=== PATIENT | female | born 1980 | race Caucasian/White ===

== ENCOUNTER 2025-01-19 18:38 | Emergency (ER) | payer OTHER, SELFPAY ==
[2025-01-19 18:40] VITALS: BMI 19.1
[2025-01-19 18:43] VITALS: BP 129/94
[2025-01-19 19:02] VITALS: BP 101/83
[2025-01-19 20:00] VITALS: BP 106/79
[2025-01-19 20:12] LABS: Amphetamines Negative (Negative); Barbiturates Negative (Negative); Benzodiazepines Negative (Negative); Buprenorphine Negative (Negative); Cocaine Negative (Negative); Marijuana Negative (Negative); Methadone Negative (Negative); Methamphetamines Negative (Negative); Opiates Positive (Negative); Phencyclidine Negative (Negative); Tricyclic Antidepressants Negative (Negative)
[2025-01-19 20:27] LABS: Fentanyl, Urine Positive (Negative)
--- NOTE | 2025-01-19 22:02 | ED.GENMED ---
History of Present Illness
General
Chief Complaint: Overdose Intentional
Source: patient
Exam Limitations: none
Time Seen by Provider: 01/19/25 19:05
History of Present Illness
History of Present Illness:
44-year-old female presents from [facility] for evaluation of potential overdose. She came into custody yesterday. She was alert earlier today went to the [facility] got her medicine shortly after that she was found in her
cell and responsive. They were concerned about potential retained substances. She admits to using heroin. She was given Narcan prehospital and now is alert. She denies any complaints at this time.
Past History
Past History
ED Past Medical History: Asthma
ED Past Surgical History:
Social History
Tobacco: Smoker
Personal:
Living: with family
Family History
Family History: Other (Noncontributory)
Phy Exam
Physical Exam
Physical Exam:
General: Cachectic female no acute respiratory distress
Neurologic exam alert responsive verbal stimuli follows commands answers questions
HEENT normocephalic pupils equal round reactive to light
Heart: Regular rate and rhythm
Lungs: Clear no wheeze
Extremities: No cyanosis
Course
Orders/Labs/Results
Orders:
Orders
01/19/25 19:32
CR Obstruct Series W/pa Chest Urgent
Comment:
Reason For Exam: possible foreign body
01/19/25 19:55
Drug Screen, Urine [Urine Drug Abuse Screen] Urgent
Date Specimen was Collected: 01/19/25
Time Specimen was Collected: 19:53
Fentanyl, Urine Urgent
Abnormal Lab Results
01/19/25
19:55
Urine Opiates Screen Positive H
(Negative)
Urine Fentanyl Screen Positive H
(Negative)
Vital Signs
Initial and Last Documented VS:
Initial Vital Signs
Temp Pulse Resp BP Pulse Ox
98.3 F 88 18 129/94 97
01/19/25 18:43 01/19/25 18:43 01/19/25 18:43 01/19/25 18:43 01/19/25 18:43
Last Documented Vital Signs
Temp Pulse Resp BP Pulse Ox
98.3 F 71 30 106/79 95
01/19/25 18:43 01/19/25 20:00 01/19/25 20:00 01/19/25 20:00 01/19/25 21:30
MDM/Problems Addressed
Differential Diagnosis Includes:
Potential overdose. Admits to using heroin. This patient is now here after receiving Narcan by first responders and is alert and responsive. Obstruction series is ordered as a correctional facility was concerned about potential retained foreign
bodies. Obstruction series is negative. She was observed for over 2 hours here and has been ambulatory to the bathroom and is in no respiratory distress. At this point no indication for admission or further treatment stable for discharge back to
correction
*Critical Care Note
Total Time (30-74mins, 75-104mins- exclusive of procedures): Not Applicable
ED Attending Note
-
Portions of this chart may have been created with voice recognition software.� Occasional wrong word or��sound alike� substitutions may have occurred due to the inherent limitations of voice recognition software.
Discharge Plan
Departure
Patient Disposition: Home (Routine Discharge)
Date of Disposition: 01/19/25
Time of Disposition: 22:05
Patient with high blood pressure during this ER visit?: No
Discharge Problem:
Overdose
Instructions: Accidental Overdose
Prescriptions:
No Action
alprazolam 1 MG tablet
2 mg PO TID
albuterol sulfate [Ventolin HFA] 90 MCG/PUFF HFA aerosol inhaler
1 puff inhalation PRN PRN (Reason: rescue )
budesonide-formoterol [Symbicort] 1 PUFF HFA aerosol inhaler
2 puff inhalation R BID
Methadone HCl
150 mg PO DAILY
amitriptyline 10 MG tablet
10 mg PO HS
Patient Comments:
patient has medication from PCP but has never taken
escitalopram oxalate 10 MG tablet
10 mg PO DAILY
Patient Comments:
New medication ordered by PCP, hasn't started yet. Was to increase to 10 mg after 14 days
escitalopram oxalate 10 MG tablet
5 mg PO DAILY
Patient Comments:
New medication ordered for patient, has not taken yet. Was to take for 14 days than increase to 10mg daily.
acetaminophen 325 MG tablet
650 mg PO Q4HPRN PRN (Reason: mild pain) Qty: 0 0RF
ibuprofen 400 MG tablet
400 mg PO Q6HPRN PRN (Reason: moderate pain) Qty: 0 0RF
Saccharomyces boulardii 250 MG capsule
250 mg PO BID Qty: 30 0RF
guaifenesin [Mucus Relief ER] 600 MG tablet extended release 12hr
600 mg PO Q12 0RF
cephalexin 500 MG capsule
750 mg PO QID Qty: 26 0RF
Rx Instructions:
Please continue keflex 4 times a day for 6 further days to complete course - you should take 2 more doses today, 03/13.
tramadol 50 MG tablet
50 mg PO Q6HPRN PRN (Reason: pain) Qty: 1 0RF
Referrals:
UNKNOWN - PT DOES,NOT KNOW [Family Provider] -
Activity Restrictions/Additional Instructions:
Return here if needed.
Interventions
Interventions:
*Risk Screen - Suicide Last Done: 01/19/25 20:15
*General Assessment Last Done: 01/19/25 18:43
*Neglect/Abuse Screening Last Done: 01/19/25 20:15
*ED- Fall Risk Assessment Last Done: 01/19/25 20:15
*ED COVID-19 Vaccine History Last Done: 01/19/25 20:15
ED- Cardiac Assessment Last Done: 01/19/25 19:13
ED- Neurological Assessment Last Done: 01/19/25 19:13
ED-Psychological Assessment Last Done: 01/19/25 19:13
ED- Pulmonary Assessment Last Done: 01/19/25 19:13
Discharge Date and Time
Print Language: BENGALI
[2025-01-19 22:12] VITALS: BP 122/96
== END 2025-01-19 22:44 | disposition home or self-care (01) ==
LOC: EMR 18:38
PROVIDERS: Physician Assistant; EMERGENCY PHYSICIAN Emergency Medicine
DX: T40.1X2A Poisoning by heroin, intentional self-harm, initial encounter (principal); R40.4 Transient alteration of awareness; Y92.143 Cell of prison as the place of occurrence of the external cause; J45.909 Unspecified asthma, uncomplicated; F17.200 Nicotine dependence, unspecified, uncomplicated
CPT/HCPCS: 99283; 74022; 80306; 80307

== ENCOUNTER 2025-07-28 16:46 | Inpatient (IN) | payer OTHER, SELFPAY ==
[2025-07-28] VITALS (16 sets, daily range): BP systolic 146–239; BP diastolic 77–132; BMI 20.1; BMI 20.9
--- NOTE | 2025-07-28 14:03 | ED.GENMED ---
History of Present Illness
General
Chief Complaint: Blood Pressure Problem
Source: patient
Time Seen by Provider: 07/28/25 13:53
History of Present Illness
History of Present Illness:
45-year-old female brought to the emergency room by [facility] deputies for evaluation of abnormal vital signs. Patient was arrested and taken to the [facility] long-term where she was found to have abnormal vital signs on intake. Specifically she
was noted to have a rapid heart rate and a very high blood pressure. Patient admits to opiate abuse. She uses about 10-12 bags of 'fentanyl' a day by inhalation. Patient last use was about 12 hours ago. She was hospitalized about a month ago for
withdrawal with similar symptoms. Unfortunately after discharge she began using again. She denies taking prescription medications other than albuterol. She denies any current IV drug use. Patient had been to a methadone clinic where she took 100
mg of methadone a day. However she has not been dosed in the past 3 days.
Past History
Past History
ED Past Medical History: Asthma
ED Past Surgical History:
Social History
Tobacco: Smoker
Personal:
Living: with family
Family History
Family History: Other (Noncontributory)
Phy Exam
Physical Exam
Physical Exam:
General: Awake, Alert, Oriented X3. Appears mildly uncomfortable
Vitals: Hypertensive, tachycardic
Head: Atraumatic
Eyes: Pupils equal, EOMI
Throat: Airway intact, no exudates
Neck: Trachea midline
Lungs: Clear and equal b/l
Heart: Tachycardic, regular rate, no murmurs
Abd: Soft, Nontender, No pulsatile mass
Neuro: Nonfocal
Skin: Warm, dry, no rash
Extremities: pulses equal b/l, no edema
Course
Orders/Labs/Results
Orders:
Orders
07/28/25 13:58
0.9% Sodium Chloride 500 ml [Nss] 500 ml IV BOLUS
Acetaminophen [Tylenol] 1,000 mg PO NOW STA
Clonidine [Catapres] 0.1 mg PO NOW STA
HYDROmorphone [Dilaudid] 1 mg IV NOW STA
Ondansetron Injectable [Zofran] 4 mg IV NOW STA
Tizanidine [Zanaflex] 2 mg PO NOW STA
07/28/25 14:02
Electrocardiogram (*1) Urgent
Reason for Study: Tachycardia
Cardiac Monitoring- Treatment ONCE
EKG- Treatment ONCE
Test Result ONCE
07/28/25 14:37
Complete Blood Count/With Diff Urgent
Comprehensive Metabolic Panel Urgent
HCG, Serum Qualitative Screen Urgent
Magnesium Urgent
Comment: ADD ON
07/28/25 Dinner
NPO
Allow oral meds: Yes
Allow clear liquids: No
07/28/25 15:03
Ondansetron Injectable [Zofran] 4 mg IV NOW STA
07/28/25 15:06
Clonidine [Catapres] 0.1 mg PO NOW STA
07/28/25 15:13
Midazolam HCl [Versed] 2 mg IV NOW STA
07/28/25 15:22
Urinalysis Reflex To Culture Urgent
Date Specimen was Collected: 07/28/25
Time Specimen was Collected: 16:30
Urine Drug Abuse Screen Urgent
Date Specimen was Collected: 07/28/25
Time Specimen was Collected: 16:30
Urine Fentanyl [Fentanyl, Urine] Urgent
07/28/25 16:17
Dexmedetomidine 400 Mcg/100 ml [Precedex] 400 mcg in 100 ml IV NOW
07/28/25 16:30
Admit/Transfer Patient As Directed
Co-Sign Provider:
Level of Care: Inpatient admission
Assign to:: ICU
Physician / Group: renata
Diagnosis: opiate/xylazine/benzo overdose
Reason for Hospitalization: opiate/xylazine/benzo overdose
Expected length of stay greater than two midnights?: Yes
ELOS- Estimated Length of Stay in days: 2
I certify the patient meets the requirements for IP care: Yes
PRN Pain Medication Management As Directed
May give lesser potent ordered pain med per pt: Yes
preference::
Protocol:: Medication orders for pain may be administered in a
manner that supports deferring to patient preference
when the pt is:
- Requesting an ordered lesser potent pain medication.
Least to most potent pain medications are defined
as: acetaminophen < NSAID < tramadol < opioids
(morphine, oxycodone, hydromorphone).
- Requesting a lesser dose of the same medication IF
ORDERED.
- Requesting a less intrusive route of administration
if both routes are prescribed by the provider (PO <
IV).
07/28/25 16:31
Add On- LAB Urgent
Tests Added?: uds,ua
07/28/25 16:33
Code Status As Directed
Resuscitation Status: Full Code
07/28/25 16:37
Add On- LAB Routine
Tests Added?: mag
HYDROmorphone [Dilaudid] 0.5 mg IV NOW STA
07/28/25 17:09
0.9% Sodium Chloride 1000 ml [Nss] 1,000 ml IV 100 mls/hr
07/28/25 17:09
Activity As Directed
Activity Level: As Tolerated
Vital Signs As Directed
Frequency: Per unit guidelines
DX Deep Vein Thrombosis Video Routine
07/28/25 20:00
Heparin 5,000 units SC Q12
07/29/25 06:00
Complete Blood Count/With Diff IN AM
Comprehensive Metabolic Panel IN AM
Abnormal Lab Results
07/28/25 07/28/25
14:37 15:22
RBC 5.57 H 10^6/uL
(4.20-5.40)
MCV 77.9 L fL
(81.0-99.0)
Potassium 2.8 L mmol/L
(3.5-5.1)
BUN 6 L mg/dl
(7-17)
Creatinine 0.5 L mg/dL
(0.6-1.0)
Magnesium 1.3 L mg/dl
(1.6-2.3)
AST 38 H U/L
(14-36)
Urine Opiates Screen Positive H
(Negative)
Urine Methadone Screen Positive H
(Negative)
Urine Fentanyl Screen Positive H
(Negative)
U Benzodiazepines Scrn Positive H
(Negative)
07/28/25 14:37
07/28/25 14:37
Vital Signs
Initial and Last Documented VS:
Initial Vital Signs
Temp Pulse Resp BP Pulse Ox
98.4 F 121 18 219/124 95
07/28/25 13:20 07/28/25 13:20 07/28/25 13:20 07/28/25 13:20 07/28/25 13:20
Last Documented Vital Signs
Temp Pulse Resp BP Pulse Ox
98.0 F 144 21 189/114 98
07/28/25 19:54 07/28/25 21:45 07/28/25 21:45 07/28/25 21:39 07/28/25 21:49
MDM/Problems Addressed
Differential Diagnosis Includes:
Xylazine withdrawal, opiate withdrawal, electrolyte abnormality,
MDM/Problems Addressed:
Patient presents with symptoms of opiate and/or xylazine withdrawal. Patient initially treated with IV opiate in the form Dilaudid, p.o. clonidine, antiemetics, Zanaflex. IV fluid resuscitation initiated. Patient continued to have significant
symptoms. Clonidine redosed, Dilaudid redosed. Ultimately patient placed on a Precedex drip. She will be admitted to the intensive care unit. Zofran administered for nausea vomiting.
*Pulse Oximetry
SaO2: 95
Oxygen Mode of Delivery: Room air
Patient hypoxic: no
*Health Researcher Interpretation
Rate: tachycardiac
Interpretation: abnormal
Heart Rate: 143
Rhythm: sinus tachycardia
*Critical Care Note
Total Time (30-74mins, 75-104mins- exclusive of procedures): 44 min
comment:
Critical care statement: A total of 44 minutes of critical care time was provided for this patient. This includes management of unstable vital signs, evaluation of the patient at bedside, reviewing the patient's pertinent medical records, discussion
with consultants, review of old EKGs and review of pertinent medical records. This time with separate from time utilized to perform the aforementioned documented procedures
ED Attending Note
-
Portions of this chart may have been created with voice recognition software.� Occasional wrong word or��sound alike� substitutions may have occurred due to the inherent limitations of voice recognition software.
Discharge Plan
Departure
Patient Disposition: Admit
Date of Disposition: 07/28/25
Time of Disposition: 16:17
Presentation/result/management discussed w/ accepting MD/DO: Hospitalist
Condition: Critical
Discharge Problem:
xylazine withdrawl, Opiate withdrawal
Interventions
Interventions:
*Risk Screen - Suicide Last Done: 07/28/25 13:20
*General Assessment Last Done: 07/28/25 17:23
*Neglect/Abuse Screening Last Done: 07/28/25 13:20
*ED COVID-19 Vaccine History Last Done: 07/28/25 13:20
*Nursing Disposition Last Done: 07/28/25 17:23
ED- Cardiac Assessment Last Done: 07/28/25 15:03
ED- Neurological Assessment Last Done: 07/28/25 15:03
ED- Pulmonary Assessment Last Done: 07/28/25 15:03
Discharge Date and Time
Discharge Date/Time: 07/28/25 17:23
[2025-07-28] MEDS: CATAPRES 0.1 MG PO ×2 (14:15→15:19)
[2025-07-28] MEDS: ZANAFLEX 2 MG PO ×2 (14:15→20:18)
[2025-07-28] MEDS: TYLENOL 1000 MG PO (14:15)
[2025-07-28] MEDS: DILAUDID 1 MG IV (14:34)
[2025-07-28] MEDS: ZOFRAN 4 MG IV ×2 (14:35→15:19)
[2025-07-28] MEDS: NSS 500 IV (14:35)
[2025-07-28 15:10] LABS: Hematocrit 43.4 % (37.0-47.0); Hemoglobin 15.1 g/dL (12.0-16.0); Mean Corp Hgb Conc. 34.8 g/dL (33.0-37.0); Mean Corpuscular Volume 77.9 fL (81.0-99.0); Nucleated Red Blood Cells % 0 %; Platelet Count 200 10^3/uL (130-400); Red Cell Dist. Width 13.6 % (11.5-14.5)
[2025-07-28] MEDS: VERSED 2 MG IV (15:19)
[2025-07-28 15:30] LABS: HCG, Serum Qualitative Screen Negative
[2025-07-28 15:44] LABS: ALT (SGPT) 28 U/L (0-35); AST (SGOT) 38 U/L (14-36); Albumin 4.8 g/dl (3.5-5.0); Alkaline Phosphatase 98 U/L (38-126); Blood Urea Nitrogen 6 mg/dl (7-17); Calcium 9.8 mg/dl (8.4-10.2); Carbon Dioxide 30 mmol/L (22-30); Chloride 99 mmol/L (98-107); Glucose 83 mg/dl (70-99); Potassium 2.8 mmol/L (3.5-5.1); Sodium 139 mmol/L (135-145); Total Protein 8.2 g/dl (6.3-8.2); eGFR > 60.00
[2025-07-28] MEDS: PRECEDEX 100 IV ×2 (16:20→21:42)
[2025-07-28] MEDS: DILAUDID 0.5 MG IV (16:40)
--- NOTE | 2025-07-28 16:44 | HPS.HSE ---
Family Physician
-
Family Physician: * NONE
Chief Complaint
-
withdrawal
History of Present Illness
45-year-old female past medical history of alcohol use disorder, remote history of drug use, asthma, tobacco use, cholelithiasis, presenting to the emergency room by [facility] deputies for abnormal vital signs. Patient was arrested and taken to
[facility] where she was found to have abnormal vital signs on intake. She was noted to have rapid heart rate and very high blood pressure. She admits to opiate abuse with tranquilizer. She uses 10-12 bags of fentanyl a day by
inhalation. Last use was 12 hours ago. She is taking 8 mg of Xanax per day. She denies alcohol use. Denies marijuana or cocaine use. She has vomiting. Denies any chest pain or shortness of breath. She has abdominal pain.
She smokes nicotine as well.
He was hospitalized a month ago for withdrawal with similar symptoms. She denies taking prescription medications other than albuterol.
Denies any current IV drug use. She had been to methadone clinic where she takes 100 mg of methadone a day. She has not had methadone in 3 days.
Medical History
Past Medical History
Past Medical History: Reports Other (alcohol use disorder, remote history of drug use, asthma, tobacco use, cholelithiasis,)
Past Surgical History: Reports None
Social History
Tobacco: Non-smoker
Alcohol: None
Drug: Narcotics
Family History
Family History: Not pertinent
Allergies / Home Medications
Allergies reflects when Allergies were last updated in [facility].
Home Medications with original date entered in [facility]
Allergy/Medication List:
Allergies
Allergy/AdvReac Type Severity Reaction Status Date / Time
No Known Allergies Allergy Verified 01/19/25 18:43
Review of Systems
-
History Source: Patient
A 12 point ROS was completed and negative except as noted: Yes
Constitutional: Reports No Symptoms
EENT: Reports No Symptoms
Respiratory: Reports No Symptoms
Cardiac: Reports No Symptoms
Abdomen/GI: Reports No Symptoms
: Reports No Symptoms
Musculoskeletal: Reports No Symptoms
Skin: Reports No Symptoms
Neurological: Reports No Symptoms
Endocrine: Reports No Symptoms
Hematologic/Lymphatic: Reports No Symptoms
Psych: Reports No Symptoms
Physical Exam
Vital Signs
Vital Signs
Temp Pulse Resp BP Pulse Ox
98.4 F 98 30 186/110 98
07/28/25 13:20 07/28/25 15:45 07/28/25 15:45 07/28/25 15:00 07/28/25 15:01
Physical Exam
General: Well Developed, Well Nourished and No Apparent Distress
HEENT: NormoCephalic, Moist mucous membranes and Atraumatic
Respiratory: Clear
Cardiac: S1/S2 and Regular Rhythm; No Murmur or Rub
GI: Soft, Non Tender, Non Distended and Normal Bowel Sounds; No Organomegaly
Rectal: Deferred by Provider
Musculoskeletal: No Clubbing, No Cyanosis and No Edema
Skin: No Rash
Neuro: Nonfocal/grossly intact
Laboratory Results
-
07/28/25 14:37
07/28/25 14:37
Laboratory Results
Total Bilirubin 0.7 mg/dl (0.2-1.3) 07/28/25 14:37
AST 38 U/L (14-36) H 07/28/25 14:37
ALT 28 U/L (0-35) 07/28/25 14:37
Alkaline Phosphatase 98 U/L (38-126) 07/28/25 14:37
Data Reviewed
-
Lab Data: Labs Reviewed by me
Old Records: Reviewed
Impression/Plan
-
IMPRESSION:
PLAN:
# Xylazine/opiate/component of benzodiazepine withdrawal
- UDS pending
- Check alcohol level
- Precedex drip for light sedation
-Continue methadone 100 mg which she takes normally she says
-Start low-dose clonazepam if withdrawal still not adequately controlled on Precedex and methadone
- IV fluids
-Zofran for nausea
# Hypokalemia
- Replete potassium
- Check magnesium
History of asthma
History of tobacco use
Prior alcohol use disorder
- Not drinking alcohol anymore
Full code
DVT prophylaxis-heparin
N.p.o.
[2025-07-28 17:22] LABS: Glucose - Point of Care 97 mg/dl (70-99)
[2025-07-28] MEDS: COMPAZINE 10 MG IV (17:30)
[2025-07-28] MEDS: NSS with KCL 40 MEQ 1000 IV (17:31)
[2025-07-28] MEDS: NSS 1000 IV (17:31)
[2025-07-28] MEDS: SUBLIMAZE 25 MCG IV ×3 (17:35→19:30)
[2025-07-28] MEDS: PHENOBARBITAL 97.5 MG IV ×2 (17:39→21:42)
[2025-07-28 17:48] LABS: Urine Character Clear (Clear)
[2025-07-28 18:23] LABS: Magnesium 1.3 mg/dl (1.6-2.3)
[2025-07-28] MEDS: TRANDATE 10 MG IV ×2 (18:35→22:21)
[2025-07-28 18:52] LABS: INR 1.10; PT 14.5 Sec (11.4-14.6)
[2025-07-28 18:53] LABS: APTT 28.9 Sec (23.4-35.0)
--- NOTE | 2025-07-28 19:17 | PTCARENOTE ---
Received pt from ER into ICU rm [id number] @ approx 1700. Pt. drowsy; actively vomiting on arrival. Dr. Garrido to bedside; further orders received to tx active w/drawal; admin IVF Fent,IV Phenobarb, IV Compazine- see JAN. S/P medical intern, pt. became
alert/oriented/cooperative; COWS- 25- see admit flow sheet. ST on monitor. Elevated BPs up to 200's/100's- Dr. Garrido aware and admin IV labetalol- see JAN. SpO2 98% on RA. Cont b/b; bed saleh prn. NPO status maintained. Skin intact; diaphoretic.
#20 R AC w IVF and dex- see flow sheet. Pt. able to reposition self in bed w prompting. Police x2 @ bedside. Next shift updated.
[2025-07-28] MEDS: CARDENE 200 IV (19:29)
[2025-07-28] MEDS: HEPARIN 5000 UNITS SC (19:30)
[2025-07-28] MEDS: MAGNESIUM SULFATE 50 IV (19:44)
[2025-07-28] MEDS: CATAPRES 0.2 MG PO ×2 (20:18→23:06)
[2025-07-28] MEDS: ROXICODONE 20 MG PO (20:18)
[2025-07-28] MEDS: BELBUCA 300 MCG BUCCAL ×2 (20:18→23:06)
[2025-07-28] MEDS: VALIUM INJECTION 10 MG IV (20:50)
--- NOTE | 2025-07-28 22:54 | PTCARENOTE ---
rec'd pt at 1900. precedex and IVF infusing. cardene gtt initiated for elevated BP not responding to labetalol - HR increased to 160/170s, discussed with pharmacy, cardene gtt titrated off. PO meds initiated for COWS/opioid withdrawal protocol.
valium given, see MAR - VAT placed LUE midline. PRN labetalol given for SBP >180. police x2 at bedside. pt cooperative, remains NPO, on 2L NC. bedpan as needed. CHG bath complete. care continues.
[2025-07-28] MEDS: OXYCONTIN (CONTROLLED RELEASE) 40 MG PO (23:06)
[2025-07-29] VITALS (51 sets, daily range): BP systolic 111–211; BP diastolic 76–130; BMI 21.0
[2025-07-29] MEDS: APRESOLINE 10 MG IV ×2 (00:38→21:28)
--- NOTE | 2025-07-29 00:47 | PTCARENOTE ---
SBP remains >190, HR elevated 10 150s. PRN labetalol not due at this time. hydralazine ordered by ICU PROMOTION MANAGER, see MAR
[2025-07-29] MEDS: VALIUM INJECTION 10 MG IV (00:56)
[2025-07-29] MEDS: ZOFRAN 4 MG IV ×2 (00:58→08:01)
[2025-07-29] MEDS: ROXICODONE 20 MG PO ×2 (02:29→18:02)
[2025-07-29] MEDS: ZANAFLEX 2 MG PO ×2 (02:29→08:29)
[2025-07-29] MEDS: PRECEDEX 100 IV ×4 (02:29→22:54)
[2025-07-29] MEDS: NSS 1000 IV ×2 (02:29→15:33)
[2025-07-29] MEDS: TRANDATE 10 MG IV ×2 (03:04→16:32)
[2025-07-29 03:27] LABS: Hematocrit 43.0 % (37.0-47.0); Hemoglobin 15.5 g/dL (12.0-16.0); Mean Corp Hgb Conc. 36.0 g/dL (33.0-37.0); Mean Corpuscular Volume 76.9 fL (81.0-99.0); Nucleated Red Blood Cells % 0 %; Platelet Count 245 10^3/uL (130-400); Red Cell Dist. Width 13.8 % (11.5-14.5)
[2025-07-29 03:45] LABS: ALT (SGPT) 42 U/L (0-35); AST (SGOT) 76 U/L (14-36); Albumin 4.8 g/dl (3.5-5.0); Alkaline Phosphatase 142 U/L (38-126); Blood Urea Nitrogen 5 mg/dl (7-17); Calcium 8.7 mg/dl (8.4-10.2); Carbon Dioxide 23 mmol/L (22-30); Chloride 105 mmol/L (98-107); Estimated Creatinine Clearance 93 ml/min; Glucose 128 mg/dl (70-99); Magnesium 1.7 mg/dl (1.6-2.3); Potassium 3.0 mmol/L (3.5-5.1); Sodium 140 mmol/L (135-145); Total Protein 7.9 g/dl (6.3-8.2); eGFR > 60.00
--- NOTE | 2025-07-29 04:18 | PTCARENOTE ---
K and mag to be repleted this morning. precedex gtt continues. PRNs given as needed per COWS. pt remains ST on monitor. labetalol gtt ordered to maintain BP <180/105. care continues.
[2025-07-29] MEDS: KCL 270 MEQ IV (04:40)
[2025-07-29] MEDS: BELBUCA 300 MCG BUCCAL ×4 (04:40→15:34)
[2025-07-29] MEDS: MAGNESIUM SULFATE 102 GRAMS IV (04:40)
[2025-07-29] MEDS: TRANDATE 80 MG IV (05:07)
[2025-07-29] MEDS: CATAPRES 0.2 MG PO ×3 (05:08→19:42)
--- NOTE | 2025-07-29 05:12 | PTCARENOTE ---
BP 183/121, labetalol gtt initiated per protocol
--- NOTE | 2025-07-29 07:15 | CON.INTV ---
Consultation
Consultation Request
Date/Time Consultation Requested: 07/28/2025
Date/Time Consultation Performed: 07/29/2025 - 0710
Requesting Provider: Dr. Campa
Performing Provider: Dr. Garrido
Reason for Consultation: Opiate withdrawal
Medical History
-
Chief Complaint: High blood pressure
History of Present Illness:
45-year-old female tobacco smoker with a past medical history of HCV, Hx of alcohol use disorder, benzodiazepine abuse, left forearm abscess s/p I&D, history of asthma, and acute cholecystitis s/p laparoscopic cholecystectomy who presents from the
Inhalation Therapist's office due to high blood pressure while in prison. She was found to have high blood pressure after she was arrested and taken to [facility] skilled nursing. Also found to have a rapid heart rate. Patient admitted to fentanyl abuse with tranq.
She reports that she uses 10�12 bags of fentanyl a day by snorting. Last use was 12 hours prior to arrival here to the hospital. She also takes 8 mg total of Xanax per day. Currently denies alcohol use. She was nauseous and vomiting here in the
hospital. In ER, she was initially hypertensive to 219/124, pulse rate 121, afebrile to 98.4 �F, breathing at 18 breaths/min and saturating 95% on room air. Labs showed normal WBC at 5.9, Hb 15.1, potassium 2.8, magnesium 1.3, beta-hCG negative,
urinalysis negative for UTI and urine toxicology screen positive for opiates, methadone, fentanyl and benzodiazepines. CXR showed no acute disease of the chest. Given 500 cc bolus of NS 0.9% in the ER, as well as hydromorphone, Versed, Tylenol,
tizanidine and clonidine. Given her continued withdrawal symptoms with significant hypertension, shakes, chills, and nausea/vomiting, Precedex was started and she was admitted to the ICU for further care. Development Technician service is consulted for
additional management/recommendations.
Pt seen and evaluated this AM. Please officers x 2 at bedside. Labetalol gtt started overnight, but has been turned off this AM. Currently on precedex at 1.3mcg/kg/hr. Crrent heart rate 93, saturating 99% on 2L/min and BP 120/77. Patient is
awake, alert, no longer nauseous and denies abdominal pain, shortness of breath, chest pain. She is still shaky and has a chills but denies fevers.
PMHx: Left forearm abscess s/p I&D, history of hepatitis C virus, ovarian cyst, history of asthma, acute cholecystitis s/p laparoscopic cholecystectomy
PSHx: Lap cholecystectomy, left forearm I&D, section
Past Medical History
Past Medical History: Other (Above as per HPI)
Past Surgical History: Other (Above as per HPI)
Social History
Tobacco: Smoker
Alcohol: Former
Drug: Narcotics, IVDA and Other (Benzodiazepine use)
Family History
Family History: Cancer (Sister: Ovarian cancer)
Allergies / Home Medications
Allergies
Allergy/AdvReac Type Severity Reaction Status Date / Time
No Known Allergies Allergy Verified 01/19/25 18:43
Home Medications
�Medication �Instructions �Recorded �Confirmed �Last Taken �Type
buprenorphine 8 mg-naloxone 2 mg 2 film buccal DAILY 07/28/25 Unknown History
sublingual film
methadone 10 mg/5 mL oral solution 100 mg PO DAILY 07/28/25 Unknown History
Review of Systems
-
History Source: Patient
All other systems: Negative unless noted
Vitals / Labs / Diagnostic Testing
Vital Signs
Temp Pulse Resp BP Pulse Ox
98.6 F 97 22 117/82 95
07/29/25 04:14 07/29/25 06:30 07/29/25 06:30 07/29/25 06:30 07/29/25 06:30
Lab Data
07/29/25 02:42
07/29/25 02:42
Laboratory Results
07/28/25
18:28
PT 14.5
INR 1.10
APTT 28.9
Diagnostic Testing:
Physical Exam
-
HEENT: Normocephalic and Anicteric
Cardiovascular: S1/S2, Peripheral Edema (negative) and Other (Tachycardic)
Respiratory: Wheeze (negative), Rales (negative), Rhonchi (negative) and Non-Labored Respirations
GI: Soft, Non Distended, Non Tender and Normal Bowel Sounds
Neurology: Awake, Alert and Tremors (Mild)
Skin: Warm and Dry
General: Respiratory Distress (negative), Comfortable, Fever (negative), Chills (Mild) and Sweats (Mild)
Assessment
-
Assessment: 45-year-old female tobacco smoker with a past medical history of HCV, Hx of alcohol use disorder, benzodiazepine abuse, left forearm abscess s/p I&D, history of asthma, and acute cholecystitis s/p laparoscopic cholecystectomy who
presents from the Inhalation Therapist's office due to high blood pressure while in prison. She was found to have high blood pressure after she was arrested and taken to [facility] skilled nursing. Also found to have a rapid heart rate. Patient admitted to fentanyl
abuse with tranq. She reports that she uses 10�12 bags of fentanyl a day by snorting. Last use was 12 hours prior to arrival here to the hospital. She also takes 8 mg total of Xanax per day. Currently denies alcohol use. She was nauseous and
vomiting here in the hospital. In ER, she was initially hypertensive to 219/124, pulse rate 121, afebrile to 98.4 �F, breathing at 18 breaths/min and saturating 95% on room air. Labs showed normal WBC at 5.9, Hb 15.1, potassium 2.8, magnesium 1.3,
beta-hCG negative, urinalysis negative for UTI and urine toxicology screen positive for opiates, methadone, fentanyl and benzodiazepines. CXR showed no acute disease of the chest. Given 500 cc bolus of NS 0.9% in the ER, as well as hydromorphone,
Versed, Tylenol, tizanidine and clonidine. Given her continued withdrawal symptoms with significant hypertension, shakes, chills, and nausea/vomiting, Precedex was started and she was admitted to the ICU for further care. Development Technician service is
consulted for additional management/recommendations.
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
Impression:
#Opiate withdrawal (uses 10�12 bags of fentanyl with tranq)
#Hypertensive urgency
#Benzodiazepine abuse (uses 4 bars of xanax per day = 8mg total)
#Prolonged QTc
#Hypokalemia
#Hypomagnesemia
#Tobacco use
Plan:
- Continue with microdosing subutex protocol
- QTc is prolonged --> discussed with pharmacy and I will DC tizanidine, trend electrolytes and trend QTc with repeat EKG tonight
- Continue Precedex and wean down to off as tolerated
- Continue clonidine as well as other supportive medications for fentanyl withdrawal in addition to withdrawal from adulterants, including xylazine + medetomidine
- Continue prn Zofran, Compazine, Subutex, Imodium and oxycodone
- Given her daily use of Xanax, I will also continue with phenobarbital to avoid withdrawal seizure
- She may need additional doses of either Ativan or Xanax for breakthrough symptoms
- It is reported that she also smokes tobacco ---> will offer a nicotine patch
- Maintain SpO2 >90-94%; continue aspiration precautions, keeping HOB >30-45�
- Anti-emetics as needed, but monitor QTc if giving reglan or zofran; would give compazine first as this may not prolong QTc as much as the former agents
- Her SBP on admission was in the 200�220 range
- She required labetalol drip yesterday in addition to Cardene; both these drips are now off
- Patient has no neurological symptoms; would still be careful lowering blood pressure too rapidly and would avoid hypotension; ideally want to reduce SBP by 25% over the first 24 hours, however given there is no obvious clinical signs of endorgan
damage, strict BP control is not a necessity
- Continue clonidine; may need additional antihypertensives for BP control (i.e. Coreg)
- Maintain MAP>65
- BECARES consult
- Replete electrolytes with K>4, Mg>2
- Maintain euglycemia with goal BG 140-180; check A1C
- Trend H/H and transfuse if needed to keep Hb>7-8g/dL; keep plt>20k, unless there is concern for bleeding then keep plt>50k
- prn nebulized bronchodilators - not currently bronchospastic
- Incentive spirometer encouraged 10x per hour for at least 4 hrs a day
- DVT ppx: start LMWH
Continue ICU level of care for this critically ill patient
Critical care statement: A total of 37 minutes of critical care time was provided for this patient today. This includes management of unstable vital signs, evaluation of the patient at bedside, reviewing the patient's pertinent medical records
including radiographs, microbiology, laboratory evaluations, and discussion with primary team, consultants, pharmacy, nutrition, physical therapy, case management, charge nurse, critical care nursing, and respiratory therapy.
[2025-07-29] MEDS: OXYCONTIN (CONTROLLED RELEASE) 40 MG PO ×2 (08:01→15:34)
[2025-07-29] MEDS: PHENOBARBITAL 97.5 MG IV ×3 (08:01→21:31)
[2025-07-29] MEDS: HEPARIN 5000 UNITS SC (08:01)
--- NOTE | 2025-07-29 08:39 | CON.HOSP ---
Addendum entered and electronically signed by Pascual Morales MD 07/30/25 13:20:
see update note
Original Note:
Family Physician
-
Family Physician: * NONE
Chief Complaint
-
opioid withdrawal
History of Present Illness
45yoF PMH AUD, opioid use disorder, asthma presenting with tachycardia and hypertensive urgency in setting of opioid withdrawal.
Pt reports taking methadone daily but missed her dose yesterday. She also reports taking fentanyl for months on top of the methadone until yesterday.
Scoring COWS overnight 25, 20, 12, 11.
Today, she reports feeling okay. Denies abdominal pain or nausea at current time. She
Medical History
Past Medical History
Past Medical History: Reports Asthma and Psychiatric (AUD, opioid use)
Past Surgical History: Reports Cholecystectomy
Social History
Alcohol: None (none now)
Drug: Narcotics
Allergies / Home Medications
Allergies reflects when Allergies were last updated in [facility].
Home Medications with original date entered in [facility]
Allergy/Medication List:
NKDA
Review of Systems
-
History Source: Patient
Constitutional: Reports Chills; Denies Fever
EENT: Reports No Symptoms
Respiratory: Denies Trouble Breathing
Cardiac: Reports Diaphoresis and Palpitations; Denies Chest Pain
Abdomen/GI: Denies Abdominal Pain, Nausea, Vomiting (was previously vomiting, nauseas) or Diarrhea
: Reports No Symptoms
Musculoskeletal: Reports No Symptoms
Skin: Reports No Symptoms
Neurological: Reports No Symptoms
Psych: Reports Anxiety
Physical Exam
Vital Signs
Vital Signs
Temp Pulse Resp BP Pulse Ox
98.5 F 97 21 113/78 96
07/29/25 08:06 07/29/25 07:00 07/29/25 07:00 07/29/25 07:00 07/29/25 07:00
Physical Exam
General: No Apparent Distress and Comfortable
HEENT: Normocephalic, Anicteric, Moist Mucous Membranes and PERRLA; Negative Good Dentition
Respiratory: Clear and Non Labored Respirations
Cardiac: S1/S2 and Regular Rhythm
GI: Soft, Non Tender and Non Distended
Musculoskeletal: No Edema
Skin: Warm and Dry
Neuro: AO x 3, No Motor Deficits and Sedated (light sedation, awake and answers questions appropriately )
Psych: Calm
Laboratory Results
-
Laboratory Results
07/29/25 02:42
07/29/25 02:42
PT 14.5 Sec (11.4-14.6) 07/28/25 18:28
INR 1.10 07/28/25 18:28
APTT 28.9 Sec (23.4-35.0) 07/28/25 18:28
Total Bilirubin 1.2 mg/dl (0.2-1.3) 07/29/25 02:42
AST 76 U/L (14-36) H 07/29/25 02:42
ALT 42 U/L (0-35) H 07/29/25 02:42
Alkaline Phosphatase 142 U/L (38-126) H 07/29/25 02:42
Impression / Plan
-
IMPRESSION:
45yoF PMH AUD, opioid use, asthma presenting with acute opioid withdrawal.
Pt was scoring very high on COWS on presentation. In room, pt was on IV labetalol with stable BP and HR, AFVSS. Mildly elevated LFTs. UDS was taken after ED medication unreliable.
PLAN:
#Acute opioid withdrawal
#hypokalemia
- ECG to evaluate QTc
- COWS scoring
- Precedex and sedation per ICU
- Loperamide, zofran PRN
- Replete electrolytes as needed. Hypokalemia in setting of profuse emesis on presentation.
- Diazepam and Phenobarbital PRN
- Buprenorphine
#Hypertensive urgency
- No sign of end organ failure. IV labetalol. wean as tolerated
- Clonidine started for BP, anxiety, agitation
#Transaminitis
- In setting of acute withdrawal
- monitor for changes
#AUD
No alcohol use currently
DVT prophylaxis: Heparin
Diet: Regular
Disposition: Monitor for 72 hrs
[2025-07-29] MEDS: KCL 40 MEQ PO ×2 (11:47→20:25)
[2025-07-29] MEDS: CATAPRES 0.1 MG PO (11:47)
--- NOTE | 2025-07-29 12:00 | PTCARENOTE ---
alert and calm. Labetalol off. Weaning precedex. All assessments unchanged.
--- NOTE | 2025-07-29 14:07 | CM ---
Patient is in custody of [facility]. She will return to correction system at discharge.
--- NOTE | 2025-07-29 16:00 | W.PN.UPDATE ---
Update Note
Progress Note Update
Opioid withdrawal
Wean Precedex as tolerated
Wean labetalol as tolerated
Clonidine Q6 for agitation or anxiety blood pressure
Pseudoephedrine as needed for yawning
Antiemetics
Antidiarrheals
Phenobarbital taper ordered per ICU
On buprenorphine micro dosing schedule
Hypokalemia replete
Prior alcohol use disorder
Does not drink alcohol anymore
[2025-07-29] MEDS: XANAX 1 MG PO (16:48)
[2025-07-29] MEDS: LOVENOX 40 MG SC (18:00)
[2025-07-29 18:29] LABS: Blood Urea Nitrogen 10 mg/dl (7-17); Calcium 8.9 mg/dl (8.4-10.2); Carbon Dioxide 22 mmol/L (22-30); Chloride 109 mmol/L (98-107); Estimated Creatinine Clearance 93 ml/min; Glucose 113 mg/dl (70-99); Magnesium 1.8 mg/dl (1.6-2.3); Potassium 3.7 mmol/L (3.5-5.1); Sodium 137 mmol/L (135-145); eGFR > 60.00
--- NOTE | 2025-07-29 18:30 | PTCARENOTE ---
Increased anxiety, restlessness and elevated BP. PRN Latetalol and one time dose xanax given. Precedex titrated back up. All other assessments unchanged.
--- NOTE | 2025-07-29 19:20 | PTCARENOTE ---
Handoff report received from off going RN. Patient received on Precedex gtt at 1 mcg/kg/hr (12.5 ml/hr). COWs of 5. Plan of care for the shift reviewed with the patient. AAOx4 and able to make her needs known. Verbalizes mild anxiousness. Pain
reassessed for 04/15 post Roxicodone administration. Pt however verbalizes feel better. Sinus tachy on the monitor. Breath sounds are cta. +BS. PIV. Auxiliary Powerplant Operator are in the room. Call boudreaux is within reach.
[2025-07-29] MEDS: VASOTEC 1.25 MG IV (19:42)
--- NOTE | 2025-07-29 19:47 | PTCARENOTE ---
Patient's SBP 190/120 with HR 115. PORTAL ADMINISTRATOR made aware. Vasotec 1.25 mg IV and Catapres 0.2 mg PO ordered and administered.
[2025-07-29] MEDS: MAGNESIUM SULFATE 100 IV (20:23)
[2025-07-29] MEDS: SUBUTEX 2 MG SL (21:31)
[2025-07-30] VITALS (37 sets, daily range): BP systolic 121–193; BP diastolic 87–119; PULSE 130; BMI 20.6
[2025-07-30] MEDS: CATAPRES 0.3 MG PO ×5 (00:02→23:29)
--- NOTE | 2025-07-30 00:26 | PTCARENOTE ---
Patient reassessed. COWs score of 12. Assisted the patient oob to the bathroom. Patient cleaned with CHG wipes. Linens changed. PAtient remains on precedex at 1 mcg/kg/hr. Bell Valet remain in the room.
[2025-07-30] MEDS: ROXICODONE 20 MG PO ×2 (04:47→11:44)
--- NOTE | 2025-07-30 04:49 | PTCARENOTE ---
Patient reassessed. Verbalizes 6/10 pain. Sinus tach on the monitor. PRN Roxicodone administered. Commercial Property Manager remain at the bedside.
[2025-07-30 04:54] LABS: ALT (SGPT) 29 U/L (0-35); AST (SGOT) 28 U/L (14-36); Albumin 3.9 g/dl (3.5-5.0); Alkaline Phosphatase 99 U/L (38-126); Blood Urea Nitrogen 11 mg/dl (7-17); Calcium 9.1 mg/dl (8.4-10.2); Carbon Dioxide 22 mmol/L (22-30); Chloride 111 mmol/L (98-107); Estimated Creatinine Clearance 93 ml/min; Glucose 100 mg/dl (70-99); Magnesium 2.0 mg/dl (1.6-2.3); Potassium 4.1 mmol/L (3.5-5.1); Sodium 139 mmol/L (135-145); Total Protein 6.6 g/dl (6.3-8.2); eGFR > 60.00
[2025-07-30 05:11] LABS: Hematocrit 37.5 % (37.0-47.0); Hemoglobin 12.8 g/dL (12.0-16.0); Mean Corp Hgb Conc. 34.1 g/dL (33.0-37.0); Mean Corpuscular Volume 78.8 fL (81.0-99.0); Platelet Count 159 10^3/uL (130-400); Red Cell Dist. Width 14.9 % (11.5-14.5)
[2025-07-30] MEDS: PRECEDEX 100 IV ×2 (05:57→16:15)
--- NOTE | 2025-07-30 07:04 | W.PN.HOSP.TC ---
Addendum entered and electronically signed by Pascual Morales MD 07/30/25 13:21:
Opioid withdrawal
Wean Precedex as tolerated
Clonidine Q6 for agitation or anxiety blood pressure
Pseudoephedrine as needed for yawning
Antiemetics
Antidiarrheals
Phenobarbital taper ordered per ICU
On buprenorphine micro dosing schedule
Hypokalemia replete
Prior alcohol use disorder
Does not drink alcohol anymore
Original Note:
Today's Communication/Plan
-
IMPRESSION:
45yoF PMH AUD, opioid use, asthma presenting with acute opioid and benzodiazepine withdrawal.
Pt was scoring very high on COWS on presentation. Yesterday, pt was on IV labetalol with stable BP and HR. Mildly elevated LFTs. UDS was taken after ED medication unreliable. Pt reports taking fentanyl and 2 bars of xanax daily before presenting.
Today, AFVSS. Pt BP elevated overnight and received dose of labetalol. No nausea or vomiting. COWS decreasing. Continues on precedex drip, weaning.
PLAN:
#Acute opioid withdrawal
#hypokalemia
- ECG demonstrated improving QTc
- COWS scoring
- Precedex and sedation per ICU. Continue to wean.
- Loperamide, zofran PRN
- Replete electrolytes as needed.
- Continue diazepam oxycodone PRN and Phenobarbital taper
- Continue Buprenorphine
#Hypertensive urgency
- No sign of end organ failure. IV labetalol off. PRN labetalol.
- Clonidine started for BP, anxiety, agitation
#Transaminitis
- In setting of acute withdrawal-resolved
- Monitor for changes
#AUD
No alcohol use currently
DVT prophylaxis: Lovenox
Diet: Regular
Disposition: Monitor for 72 hrs
Assessment / Plan
Assessment / Plan
Anticipated Discharge: Within 24 hours
Subjective/Interval History
-
Date of Service: July 30, 2025
Pt reports feeling better today, denying diarrhea, abdominal pain, vomiting. She reports lots of yawning.
Objective Data
-
Labs:
Laboratory Results
07/30/25
04:13
WBC 9.7
Hgb 12.8
Hct 37.5
Plt Count 159 D
Sodium 139
Potassium 4.1
Chloride 111 H
Carbon Dioxide 22
BUN 11
Creatinine 0.5 L
Glucose 100 H
Calcium 9.1
Total Bilirubin 0.9
AST 28
ALT 29
Alkaline Phosphatase 99
Vital Signs:
Vital Signs
Temp Pulse Resp BP Pulse Ox
98.2 F 108 26 140/93 93
07/30/25 04:15 07/30/25 05:57 07/30/25 05:30 07/30/25 05:57 07/30/25 05:30
I&O
07/29/25 07/30/25 07/31/25
06:59 06:59 06:59
Intake Total 2375.2 / 2499.9 1348.8 / 1348.8
Output Total 200 / 200
Balance 2175.2 / 2299.9 1348.8 / 1348.8
Physical Exam
-
General: No Apparent Distress and Comfortable; Negative Well Nourished
HEENT: Normocephalic, Atraumatic and Anicteric
Respiratory: Clear to Auscultation and Non Labored Respirations
Cardiac: Regular Rhythm and S1/S2
GI: Soft, Nontender and Nondistended
Musculoskeletal: No Edema
Skin: Warm and Dry
Neuro: AO x 3, No Motor Deficits, Tremors and Nonfocal/Grossly Intact
Psych: Calm (sedated on 1.2 precedex)
[2025-07-30] MEDS: OXYCONTIN (CONTROLLED RELEASE) 40 MG PO ×3 (07:45→15:37)
[2025-07-30] MEDS: PHENOBARBITAL 97.5 MG IV (07:45)
[2025-07-30] MEDS: SUBUTEX 2 MG SL ×3 (07:45→18:08)
--- NOTE | 2025-07-30 08:26 | W.PN.INTV ---
Today's Communication / Plan
Recommendations
Continue Precedex, weaning down as tolerated
Start Coreg
Continue microdosing Subutex protocol
Continue phenobarbital given high risk for benzodiazepine withdrawal seizure
Police officers x 2 at bedside
Continue ICU level of care for this critically ill patient
Assessment
-
Assessment: 45-year-old female tobacco smoker with a past medical history of HCV, Hx of alcohol use disorder, benzodiazepine abuse, left forearm abscess s/p I&D, history of asthma, and acute cholecystitis s/p laparoscopic cholecystectomy who
presents from the Communications Representative's office due to high blood pressure while in long-term. She was found to have high blood pressure after she was arrested and taken to [facility]ci. Also found to have a rapid heart rate. Patient admitted to fentanyl
abuse with tranq. She reports that she uses 10�12 bags of fentanyl a day by snorting. Last use was 12 hours prior to arrival here to the hospital. She also takes 8 mg total of Xanax per day. Currently denies alcohol use. She was nauseous and
vomiting here in the hospital. In ER, she was initially hypertensive to 219/124, pulse rate 121, afebrile to 98.4 �F, breathing at 18 breaths/min and saturating 95% on room air. Labs showed normal WBC at 5.9, Hb 15.1, potassium 2.8, magnesium 1.3,
beta-hCG negative, urinalysis negative for UTI and urine toxicology screen positive for opiates, methadone, fentanyl and benzodiazepines. CXR showed no acute disease of the chest. Given 500 cc bolus of NS 0.9% in the ER, as well as hydromorphone,
Versed, Tylenol, tizanidine and clonidine. Given her continued withdrawal symptoms with significant hypertension, shakes, chills, and nausea/vomiting, Precedex was started and she was admitted to the ICU for further care. Reservations Manager service is
consulted for additional management/recommendations.
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
Impression:
#Opiate withdrawal (uses 10�12 bags of fentanyl with tranq)
#Hypertensive urgency
#Benzodiazepine abuse (uses 4 bars of xanax per day = 8mg total)
#Prolonged QTc
#Hypokalemia
#Hypomagnesemia
#Tobacco use
Plan:
- Continue with microdosing subutex protocol
- QTc is prolonged --> continue tizanidine; trend electrolytes and trend QTc
- Continue Precedex and wean down to off as tolerated
- Continue clonidine as well as other supportive medications for fentanyl withdrawal in addition to withdrawal from adulterants, including xylazine + medetomidine
- Continue prn Zofran, Compazine, Subutex, Imodium and oxycodone
- Given her daily use of Xanax, I will also continue with phenobarbital to avoid withdrawal seizure
- She may need additional doses of either Ativan or Xanax for breakthrough symptoms
- It is reported that she also smokes tobacco ---> offered nicotine patch (pt declined)
- Maintain SpO2 >90-94%; continue aspiration precautions, keeping HOB >30-45�
- Anti-emetics as needed, but monitor QTc if giving zanaflex first before zofran or reglan
- Her SBP on admission was in the 200�220 range
- She required labetalol drip on 07/28 in addition to Cardene; both these drips are now off
- Patient has no neurological symptoms; would still be careful lowering blood pressure too rapidly and would avoid hypotension; ideally want to reduce SBP by 25% over the first 24 hours, however given there is no obvious clinical signs of endorgan
damage, strict BP control is not a necessity
- Continue clonidine; may need additional antihypertensives for BP control --> start Coreg today
- Maintain MAP>65
- BECARES consult
- Replete electrolytes with K>4, Mg>2
- Maintain euglycemia with goal BG 140-180; check A1C
- Trend H/H and transfuse if needed to keep Hb>7-8g/dL; keep plt>20k, unless there is concern for bleeding then keep plt>50k
- prn nebulized bronchodilators - not currently bronchospastic
- Incentive spirometer encouraged 10x per hour for at least 4 hrs a day
- DVT ppx: LMWH
Continue ICU level of care for this critically ill patient
Critical care statement: A total of 41 minutes of critical care time was provided for this patient today. This includes management of unstable vital signs, evaluation of the patient at bedside, reviewing the patient's pertinent medical records
including radiographs, microbiology, laboratory evaluations, and discussion with primary team, consultants, pharmacy, nutrition, physical therapy, case management, charge nurse, critical care nursing, and respiratory therapy.
Subjective Dataa
Subjective Data
Date of Service:
Date of Service: July 30, 2025
Chief Complaint: Reservations Manager Follow Up
Subjective:
Patient seen and evaluated this morning. Yesterday evening SBP chris up to the 190�200s - clonidine dose raised. Not nauseous this AM and no chest pain or SOB. Currently on Precedex at 0.8 mcg/kg/hr. She has poor appetite. She is resting in bed
in no acute distress. No complaints, denying chest pain, SOB, abdominal pain, nausea, fevers or chills. She is mainly tired and wants to sleep.
Review of Systems
General: Other (Negative unless mentioned above)
Objective Data
Data Reviewed
Vital Signs / I&O / Oxygen:
Vital Signs
Temp Pulse Resp BP Pulse Ox
98.2 F 91 22 140/100 96
07/30/25 04:15 07/30/25 09:00 07/30/25 09:00 07/30/25 09:00 07/30/25 09:00
Intake and Output
07/29/25 07/30/25 07/31/25
06:59 06:59 06:59
Intake Total 2375.2 / 2499.9 1363.8 / 1378.8 40.0 / 40.0
Output Total 200 / 200
Balance 2175.2 / 2299.9 1363.8 / 1378.8 40.0 / 40.0
SaO2 96
Nasal Cannula flow liters per 2
minute
Physical Exam
General: Respiratory Distress (negative), Comfortable and Chills (negative)
HEENT: Normocephalic and Anicteric
Cardiovascular: S1-S2 and Peripheral Edema (negative)
Respiratory: Wheeze (negative), Crackles (negative), Rhonchi (negative) and Non-Labored Respirations
GI: Soft, Non Distended, Non Tender and Normal Bowel Sounds
Neurology: Other (Sleepy but easily arousable and answering questions appropriately)
Skin: Warm, Dry, Cyanosis (negative) and Jaundice (negative)
Labs/Micro/Reports
Lab Data
07/30/25 04:13
07/30/25 04:13
Microbiology
07/28/25 18:28 Nose MRSA Screen - Final
No Methicillin Resistant Staphylococcus aureus isolated.
--- NOTE | 2025-07-30 09:30 | PTCARENOTE ---
Rec'd care of patient at 0700. Patient resting comfortably. Calm and cooperative. Precedex gtt infusing through left midline. Titrating down as tolerated. NSR/ST, rate in the 90-100's. Lung sounds diminished throughout. Pulse ox 95-97% on RA. +BS.
Per patient, last bm yesterday. Appetite poor. Voiding in bathroom. See worklist for full assessment and care.
[2025-07-30 09:40] LABS: Glycohemoglobin (HgbA1c) 5.7 % (4.0-5.6)
[2025-07-30] MEDS: COREG 3.125 MG PO ×2 (10:45→20:18)
--- NOTE | 2025-07-30 10:56 | PTCARENOTE ---
Patient remains calm. RASS -1 to 0. Continuing to wean Precedex per protocol. BP slowly trending up. Discussed in rounds. Coreg initiated. No other changes.
[2025-07-30] MEDS: LUMINAL 64.8 MG PO ×2 (15:37→21:49)
[2025-07-30] MEDS: ZANAFLEX 2 MG PO (16:51)
[2025-07-30] MEDS: TRANDATE 10 MG IV ×2 (16:51→23:29)
--- NOTE | 2025-07-30 16:57 | PTCARENOTE ---
Patient hypertensive. States she is feeling anxious. Discussed with Interactive Media Designer. PRN Labetalol and Tizanidine administered. Precedex remains infusing at low dose. No other changes.
[2025-07-30] MEDS: LOVENOX 40 MG SC (18:08)
--- NOTE | 2025-07-30 20:29 | PTCARENOTE ---
Patient is AOx3, NSR on monitor, Hypertensive SBP 170-180, PRNs given. Remains on Precedex gtt.
[2025-07-30] MEDS: SUBUTEX 4 MG SL (21:49)
[2025-07-30] MEDS: OXYCONTIN (CONTROLLED RELEASE) 20 MG PO (23:29)
[2025-07-31] VITALS (30 sets, daily range): BP systolic 126–214; BP diastolic 85–137; BMI 20.1
[2025-07-31] MEDS: ZANAFLEX 2 MG PO ×3 (02:01→14:05)
[2025-07-31] MEDS: VASOTEC 1.25 MG IV ×2 (03:04→06:40)
[2025-07-31] MEDS: ROXICODONE 20 MG PO ×3 (04:42→14:44)
[2025-07-31 04:56] LABS: Hematocrit 34.3 % (37.0-47.0); Hemoglobin 12.2 g/dL (12.0-16.0); Mean Corp Hgb Conc. 35.6 g/dL (33.0-37.0); Mean Corpuscular Volume 79.8 fL (81.0-99.0); Platelet Count 135 10^3/uL (130-400); Red Cell Dist. Width 14.6 % (11.5-14.5)
[2025-07-31 05:17] LABS: ALT (SGPT) 20 U/L (0-35); AST (SGOT) 22 U/L (14-36); Albumin 3.6 g/dl (3.5-5.0); Alkaline Phosphatase 79 U/L (38-126); Blood Urea Nitrogen 7 mg/dl (7-17); Calcium 8.4 mg/dl (8.4-10.2); Carbon Dioxide 24 mmol/L (22-30); Chloride 110 mmol/L (98-107); Estimated Creatinine Clearance 93 ml/min; Glucose 89 mg/dl (70-99); Potassium 3.4 mmol/L (3.5-5.1); Sodium 137 mmol/L (135-145); Total Protein 6.2 g/dl (6.3-8.2); eGFR > 60.00
[2025-07-31] MEDS: CATAPRES 0.3 MG PO ×3 (06:04→17:17)
[2025-07-31] MEDS: TRANDATE 10 MG IV ×3 (06:04→14:44)
--- NOTE | 2025-07-31 06:19 | W.PN.HOSP.TC ---
Addendum entered and electronically signed by Pascual Morales MD 07/31/25 13:56:
Opioid withdrawal
Wean Precedex as tolerated
Clonidine Q6 for agitation or anxiety blood pressure
Pseudoephedrine as needed for yawning
Antiemetics
Antidiarrheals
Phenobarbital taper ordered per ICU
On buprenorphine micro dosing schedule
Hypokalemia replete
Prior alcohol use disorder
Does not drink alcohol anymore
Original Note:
Today's Communication/Plan
-
Plan reviewed with attending.
Continue to manage HTN PRN labetalol. Carvedilol added.
Continue weaning precedex per ICU team appreciated.
Phenobarbital taper.
Assessment / Plan
Assessment / Plan
IMPRESSION:
45yoF PMH AUD, opioid use, asthma presenting with acute opioid and benzodiazepine withdrawal.
Pt was scoring very high on COWS on presentation. Pt was on IV labetalol with stable BP and HR. Mildly elevated LFTs. UDS was taken after ED medication unreliable. Pt reports taking fentanyl and 2 bars of xanax daily before presenting.
Afebrile. BP elevated in morning on labetalol and clonidine to 186/110, carvedilol added. No vomiting. Pt received PRN compazine and zofran this morning. COWS decreasing. Continues on precedex drip, weaning and phenobarbital taper. Continue to
manage BP.
PLAN:
#Acute opioid withdrawal
#hypokalemia
- ECG demonstrated improving QTc
- Continue COWS protocol
- Precedex and sedation per ICU. Continue to wean.
- Loperamide, zofran PRN
- Replete electrolytes as needed.
- Continue diazepam oxycodone PRN and Phenobarbital taper
- Continue Buprenorphine
#Hypertensive urgency
- No sign of end organ failure. IV labetalol off. PRN labetalol. Added carvedilol.
- Clonidine started for BP, anxiety, agitation
#Transaminitis
- In setting of acute withdrawal-resolved
- Monitor for changes
#AUD
No alcohol use currently
DVT prophylaxis: Lovenox
Diet: Regular
Disposition: Monitor for 72 hrs
Anticipated Discharge: 24 - 48 hours
Subjective/Interval History
-
Date of Service: July 31, 2025
Pt reports continued anxiety and mild nausea. No vomiting or diarrhea. Continues on precedex 0.4 this morning.
Objective Data
-
Labs:
Laboratory Results
07/31/25
04:21
WBC 6.2
Hgb 12.2
Hct 34.3 L
Plt Count 135
Sodium 137
Potassium 3.4 L
Chloride 110 H
Carbon Dioxide 24
BUN 7
Creatinine 0.5 L
Glucose 89
Calcium 8.4
Total Bilirubin 0.7
AST 22
ALT 20
Alkaline Phosphatase 79
Vital Signs:
Vital Signs
Temp Pulse Resp BP Pulse Ox
98.4 F 90 18 186/110 95
07/31/25 03:31 07/31/25 06:04 07/31/25 03:45 07/31/25 06:04 07/31/25 03:45
I&O
07/29/25 07/30/25 07/31/25
06:59 06:59 06:59
Intake Total 2375.2 / 2499.9 1363.8 / 1378.8 635.0 / 635.0
Output Total 200 / 200
Balance 2175.2 / 2299.9 1363.8 / 1378.8 635.0 / 635.0
Physical Exam
-
General: No Apparent Distress and Appears Chronically Ill
HEENT: Normocephalic, Atraumatic, Moist Mucous Membranes and Anicteric
Respiratory: Clear to Auscultation and Non Labored Respirations
Cardiac: Regular Rhythm and S1/S2
GI: Soft, Nontender and Nondistended
Musculoskeletal: No Edema
Skin: Warm and Dry
Neuro: AO x 3, No Motor Deficits and Nonfocal/Grossly Intact
Psych: Anxious
[2025-07-31] MEDS: VALIUM INJECTION 2 MG IV (06:40)
[2025-07-31] MEDS: ZOFRAN 4 MG IV (07:26)
[2025-07-31] MEDS: KCL 270 MEQ IV (07:26)
[2025-07-31] MEDS: OXYCONTIN (CONTROLLED RELEASE) 20 MG PO ×2 (08:03→16:39)
[2025-07-31] MEDS: COREG 3.125 MG PO (08:03)
[2025-07-31] MEDS: LUMINAL 64.8 MG PO ×2 (08:04→16:39)
[2025-07-31] MEDS: COMPAZINE 10 MG IV (08:04)
[2025-07-31] MEDS: SUBUTEX 4 MG SL ×3 (08:04→17:17)
--- NOTE | 2025-07-31 08:13 | PTCARENOTE ---
report received, assessments per work list. patient mildly anxious. alert, oriented and cooperative. c/o nausea. zofran administered, not relieved. medicated with compazine per prn order. monitor nsr, lungs diminished. generalized anasarca. abdomen
soft. midline patent, precedex wean per work list. K rider infusing. call boudreaux in reach. safe environment maintained
--- NOTE | 2025-07-31 08:24 | W.PN.INTV ---
Today's Communication / Plan
Recommendations
Now off precedex
Raise Coreg dose to 12.5mg BID
Add lisinopril
Goal BP<140/90
Continue microdosing Subutex protocol
Continue phenobarbital given high risk for benzodiazepine withdrawal seizure
Start low dose tapered schedule of xanax
Police officers 'discharging' the pt today
If patient remains off of Precedex drip and BP remains stable, will downgrade out of ICU to IMU vs telemetry later today. Once pt is downgraded, then our service will sign off.
Assessment
-
Assessment: 45-year-old female tobacco smoker with a past medical history of HCV, Hx of alcohol use disorder, benzodiazepine abuse, left forearm abscess s/p I&D, history of asthma, and acute cholecystitis s/p laparoscopic cholecystectomy who
presents from the Therapist's office due to high blood pressure while in long-term. She was found to have high blood pressure after she was arrested and taken to [facility] snf. Also found to have a rapid heart rate. Patient admitted to fentanyl
abuse with tranq. She reports that she uses 10�12 bags of fentanyl a day by snorting. Last use was 12 hours prior to arrival here to the hospital. She also takes 8 mg total of Xanax per day. Currently denies alcohol use. She was nauseous and
vomiting here in the hospital. In ER, she was initially hypertensive to 219/124, pulse rate 121, afebrile to 98.4 �F, breathing at 18 breaths/min and saturating 95% on room air. Labs showed normal WBC at 5.9, Hb 15.1, potassium 2.8, magnesium 1.3,
beta-hCG negative, urinalysis negative for UTI and urine toxicology screen positive for opiates, methadone, fentanyl and benzodiazepines. CXR showed no acute disease of the chest. Given 500 cc bolus of NS 0.9% in the ER, as well as hydromorphone,
Versed, Tylenol, tizanidine and clonidine. Given her continued withdrawal symptoms with significant hypertension, shakes, chills, and nausea/vomiting, Precedex was started and she was admitted to the ICU for further care. Ice Plant Operator service is
consulted for additional management/recommendations.
Chronic conditions NUT TAPPER: Left forearm abscess s/p I&D, history of hepatitis C virus, ovarian cyst, history of asthma, acute cholecystitis s/p laparoscopic cholecystectomy
Impression:
#Opiate withdrawal (uses 10�12 bags of fentanyl with tranq)
#Hypertensive urgency
#Benzodiazepine abuse (uses 4 bars of xanax per day = 8mg total)
#Prolonged QTc
#Hypokalemia
#Hypomagnesemia
#Tobacco use
Plan:
- Continue with microdosing subutex protocol
- QTc is prolonged --> continue tizanidine for N/V; trend electrolytes and trend QTc
- Precedex has been turned off as of this AM, and she seems to be doing okay - continue to monitor
- Continue clonidine as well as other supportive medications for fentanyl withdrawal in addition to withdrawal from adulterants, including xylazine + medetomidine
- Continue prn Zofran, Compazine, Subutex, Imodium, Zanaflex, and oxycodone
- Given her daily use of Xanax, I will also continue with phenobarbital to avoid withdrawal seizure
- I will also start her on a tapered schedule of Xanax for breakthrough symptoms
- It is reported that she also smokes tobacco ---> offered nicotine patch (pt declined)
- Maintain SpO2 >90-94%; continue aspiration precautions, keeping HOB >30-45�
- Anti-emetics as needed, but monitor QTc - give zanaflex first before zofran or reglan
- Her SBP on admission was in the 200�220 range
- She required labetalol drip on 07/28 in addition to Cardene; both these drips are now off
- Patient has no neurological symptoms; would still be careful lowering blood pressure too rapidly and would avoid hypotension; ideally want to reduce SBP by 25% over the first 24 hours, however given there is no obvious clinical signs of endorgan
damage, strict BP control is not a necessity
- Continue clonidine; may need additional antihypertensives for BP control --> raise Coreg to 12.5 mg BID
- Maintain MAP>65
- Change clonidine to QID; start lisinopril 10mg daily and raise coreg
- BECARES consult
- Replete electrolytes with K>4, Mg>2
- Maintain euglycemia with goal BG 140-180; check A1C
- Trend H/H and transfuse if needed to keep Hb>7-8g/dL; keep plt>20k, unless there is concern for bleeding then keep plt>50k
- prn nebulized bronchodilators - not currently bronchospastic
- Incentive spirometer encouraged 10x per hour for at least 4 hrs a day
- DVT ppx: LMWH
If patient remains off of Precedex drip and BP remains stable, will downgrade out of ICU to IMU vs telemetry later today. Once pt is downgraded, then our service will sign off; please contact pulmonary if there are any questions or concerns.
Total time spent today was 78 minutes for this encounter. Time includes reviewing laboratory test/imaging results, reviewing pertinent medical records, obtaining and reviewing medical history, performing an appropriate exam, ordering medications,
tests and procedures. Time also includes documentation of this encounter, coordinating patient care and communicating with other healthcare professionals. Total time does not include separately billed tests performed on this date of service.
Subjective Dataa
Subjective Data
Date of Service:
Date of Service: July 31, 2025
Chief Complaint: Ice Plant Operator Follow Up
Subjective:
Patient was seen and evaluated this morning. Precedex turned off early this morning. Since then, her COWS score has been around 10�11. Heart rate currently 83, BP 201/117 and she is breathing comfortably on room air. She is awake, alert and
seems to be in good spirits. She is being let go from the police today, and then she will follow up with them after she is discharged. Pt denies nausea, abd pain, f/c.
Review of Systems
General: Other (Negative unless mentioned above)
Objective Data
Data Reviewed
Vital Signs / I&O / Oxygen:
Vital Signs
Temp Pulse Resp BP Pulse Ox
98.3 F 83 20 150/93 96
07/31/25 08:12 07/31/25 09:00 07/31/25 09:00 07/31/25 09:00 07/31/25 09:00
Intake and Output
07/30/25 07/31/25 08/01/25
06:59 06:59 06:59
Intake Total 1363.8 / 1378.8 635.0 / 640.0 267.5 / 267.5
Balance 1363.8 / 1378.8 635.0 / 640.0 267.5 / 267.5
SaO2 96
Nasal Cannula flow liters per 2
minute
Physical Exam
General: Respiratory Distress (negative), Comfortable, Chills (negative) and Sweats (negative)
HEENT: Normocephalic and Anicteric
Cardiovascular: S1-S2 and Peripheral Edema (negative)
Respiratory: Wheeze (negative), Crackles (negative), Rhonchi (negative) and Non-Labored Respirations
GI: Soft, Non Distended, Non Tender and Normal Bowel Sounds
Neurology: Awake and Alert
Skin: Warm, Dry, Cyanosis (negative) and Jaundice (negative)
Labs/Micro/Reports
Lab Data
07/31/25 04:21
07/31/25 04:21
Microbiology
07/28/25 18:28 Nose MRSA Screen - Final
No Methicillin Resistant Staphylococcus aureus isolated.
[2025-07-31] MEDS: COREG 6.25 MG PO (10:38)
[2025-07-31] MEDS: XANAX 2 MG PO (10:38)
[2025-07-31] MEDS: SUBUTEX 2 MG SL (10:39)
[2025-07-31] MEDS: ZESTRIL 10 MG PO (10:39)
--- NOTE | 2025-07-31 10:49 | PTCARENOTE ---
Precedex weaned to off. patient with increased COW's, increased anxiety, BP and discomfort. prn labetolol and oxycodone given. reviewed during rounds. see prn MAR, additional coreg administered, lisinopril added
[2025-07-31] MEDS: MIRALAX 17 GRAMS PO (14:06)
--- NOTE | 2025-07-31 15:13 | CM ---
Addendum entered by Seth Lake 07/31/25 15:30:
Officer Brigido Guillaume # [phone]
Original Note:
Phenobarb taper, Wean Precedex IV, Psych consult. received call from [employer] Inspector/Tester Brigido Guillaume with [facility] Probation Department. Patient had a bench warrant because she did not appear to a court hearing. Currently, patient is not in
custody but the court requested the Probation Department follow patient's whereabouts after discharge from hospital. [facility] is responsible to notify Officer Markell when patient is discharged and where patient will be discharged. Patient now
wants to discharge to [facility]. [facility] notified of patient's desire for [facility] re[facility]. Will visit patient on 08/01/25.
--- NOTE | 2025-07-31 15:36 | PTCARENOTE ---
patient reassessed. prn dose labetalol for continued hypertension. ambulated with assistance in hallway. call boudreaux in reach. patient released from custody. psych in to see patient. no new orders at this time. patient has desire to attend rehab with
medically stable for discharge. CM to contact Nidia
--- NOTE | 2025-07-31 15:54 | CS.PSYCHR ---
Consult Summary - Psychiatry
-
pt seen in consultation due to benzo and opioid withdrawal
45 yo woman brought to [facility] senior care to satisfy outstanding warrant; when she arrived found to be very hypertensive and tachycardic so brought to [place] ED. Has been admitted to ICU for management, very hypertensive and very high COWS scores
despite use of subutex, phenobarb, oxydone and phenobarbital, as well as clonidine 0.3 qid and lisinopril.
Pt now being released from custody, will still have outstanding bench warrant but terms of release require adherence to plan developed by [facility] agency
Pt very willing to comply with this order.
Has had two prior inpatient stays, one at [facility] one at [place], as well as several stints in correctional facilities. Most recent outpatient care was at [facility], was on methadone 100 mg daily. Says she takes heroin, along with
whatever it is cut with, as well as 8 mg of xanax daily (and whatever adulterants are in street xanax.)
Lives in [facility], alone, supports self by SNAP benefits and aid from family and friends. Has 5 children ranging from 13-29. Originally from [facility] [place] [facility], becomes vague when describing her path to current living situation. has had extensive
criminal activity according to [place] docket Sheets.
States she is allergic to sulfa drugs, and has asthma treated by inhaler
Currently is receiving protocol driven precedex drip, phenobarb taper, xanax taper, subutex initiation, and oxycodone.
On interview reports reasonable degree of comfort, would like something more for her anxiety I'I'm jumping out of my skin') with elevated BP matching that assessment. Not depressed or suicidal, feels fady to be here, no signs of psychosis, no
cognitive impairment, fair insight and judgement.
Impression: mixed substance withdrawal, opioids, xylazine and benzos
Agree with current managment, may need to slow taper of xanax if bp continues to be so high, would not use another benzo
[facility] to help placement in rehab
[2025-07-31] MEDS: LOVENOX SC ×2 (17:17→17:22)
--- NOTE | 2025-07-31 18:09 | PTCARENOTE ---
patient pulled off all monitors, got dressed and stated she was leaving AMA. unwilling to stay. Dr Garrido in, makayla work signed and he removed midline
--- NOTE | 2025-07-31 18:31 | W.PN.UPDATE ---
Update Note
Progress Note Update
Notified by RN that the patient would like to leave [facility]. I went to see the patient, explained that there are risks with her leaving including worsening fentanyl withdrawal, uncontrolled blood pressure leading to hypertensive crisis which could lead
to heart attack or stroke, and possible withdrawal of benzodiazepines leading to seizure which could lead to . She understands these risks, and said that she needs to leave as her 'son is having issues that she needs to go take care of.' I
advised her to also follow-up with her PCP and to resume taking methadone, which she said that she plans to take as she was using this prior to this hospitalization. The primary hospitalist, Dr. Pascual Morales, was notified.
Patient signed the AMA paperwork and left the ICU in stable condition. She says she is going down to the ER to get an Uber to go home.
--- NOTE | 2025-08-01 08:36 | CM ---
Addendum entered by Seth Lake 08/01/25 08:48:
[facility] mail of patient signing out AMA.
Original Note:
Patient signed out AMA on 07/31/25 in PM.
--- NOTE | 2025-08-01 16:17 | W.DCSUMMARY ---
Discharge Summary
Discharge Data
Date of Admission: 07/28/25
Date of Discharge: 08/01/25
-
Pending Results: No
Hospital Course
45-year-old female past medical history of alcohol use disorder, remote history of drug use, asthma, tobacco use, cholelithiasis, presenting to the emergency room by [facility] deputies for abnormal vital signs. Patient was arrested and taken to
[facility] custodial where she was found to have abnormal vital signs on intake. She was noted to have rapid heart rate and very high blood pressure. She admits to opiate abuse with tranquilizer. She uses 10-12 bags of fentanyl a day by
inhalation. Last use was 12 hours ago. She is taking 8 mg of Xanax per day. She denies alcohol use. Denies marijuana or cocaine use. She has vomiting. Denies any chest pain or shortness of breath. She has abdominal pain.
She smokes nicotine as well.
He was hospitalized a month ago for withdrawal with similar symptoms. She denies taking prescription medications other than albuterol.
Denies any current IV drug use. She had been to methadone clinic where she takes 100 mg of methadone a day. She has not had methadone in 3 days.
Pt given dilaudid, versed, tyleonol, tizanidine and clonidine in ED.
Scoring COWS overnight of admission 25, 20, 12, 11.
Pt was started on opioid and benzodiazepine protocol. HTN to 219/124, IV labetalol started, clonidine added. Buprenorphine microdosing protocol started. Antiemetics and antidiarrheals PRN. Oxycodone long release, diazepam PRN. QTc prolonged,
tizanidine d/blake and electrolytes closely repleted. Started on precedex drip. On phenobarbital taper, following while dose weaned. Both labetalol and precedex drips weaned as tolerated. Clonidine continued for BP, anxiety, agitation. Carvedilol was
added once labetalol drip was weaned for continued HTN. BP controlled with carvedilol, PRN labetalol and clonidine. Xanax tapered schedule started. Psychiatry saw pt and assisted in finding rehab placement at [facility].
As pt was weaned down on doses of phenobarbital with continued HTN controlled with carvedilol and PRN labetalol and clonidine, she requested to leave [facility].
Discharge Plan
-
Patient Disposition: Against Medical Advice
Referrals:
NONE,* [Family Provider, Internal Medicine]
Prescriptions:
No Action
buprenorphine-naloxone 8-2 mg Film
2 film BUCCAL DAILY
Patient Comments:
07/28/25: Per PDMP, last filled 07/23/25 #14 for 7 days
methadone 10 mg/5 mL Solution
100 mg PO DAILY
Discharge Date and Time
Discharge Date/Time: 07/31/25 18:24
Print Language: KENYAN
== END 2025-07-31 18:24 | disposition left against medical advice (07) | DRG 894 ==
LOC: ICU 16:46
PROVIDERS: ADMITTING PHYSICIAN Hospitalist; ATTENDING PHYSICIAN Hospitalist; CONSULT PHYSICIAN Internal Medicine Critical Care Medicine; CONSULT PHYSICIAN Psychiatry & Neurology Psychiatry; EMERGENCY PHYSICIAN Emergency Medicine
DX: F11.23 Opioid dependence with withdrawal (principal); L02.414 Cutaneous abscess of left upper limb; I10 Essential (primary) hypertension; F13.239 Sedative, hypnotic or anxiolytic dependence with withdrawal, unspecified; J45.909 Unspecified asthma, uncomplicated; F17.200 Nicotine dependence, unspecified, uncomplicated; F10.10 Alcohol abuse, uncomplicated; R74.01 Elevation of levels of liver transaminase levels; I16.0 Hypertensive urgency; F41.9 Anxiety disorder, unspecified; E87.6 Hypokalemia; E83.42 Hypomagnesemia; Z53.29 Procedure and treatment not carried out because of patient's decision for other reasons; Z65.3 Problems related to other legal circumstances; Z80.41 Family history of malignant neoplasm of ovary; Z90.49 Acquired absence of other specified parts of digestive tract
CPT/HCPCS: 71045; 80048; 80053; 80306; 80307; 81003; 82962; 83036; 83735; 84100; 84703; 85025; 85027; 85610; 85730; 87070; 93005; 96374; 96375; 96376; 99291

== ENCOUNTER 2025-09-05 11:01 | Inpatient (IN) | payer OTHER, SELFPAY ==
[2025-09-05] VITALS (45 sets, daily range): BP systolic 101–230; BP diastolic 68–136; BMI 20.6; BMI 19.2
--- NOTE | 2025-09-05 09:22 | ED.GENMED ---
History of Present Illness
<Viviana Sims PA-C - Last Filed: 09/06/25 09:26>
General
Chief Complaint: Withdrawal Symptoms
Source: patient
Exam Limitations: clinical condition
Time Seen by Provider: 09/05/25 09:12
Nursing documentation reviewed up to this point in time: agreed with
History of Present Illness
History of Present Illness:
Patient is a 45-year-old female with history of opioid use disorder who presents to the emergency department in police custody for withdrawal symptoms. Patient was brought to long term this morning and during intake was found to have abnormal vital
signs and experiencing symptoms of withdrawal including vomiting, diaphoresis, abdominal pain. She also reports an intermittent sharp pain in her mid chest. No shortness of breath.
Patient states that she uses 15 bags of heroin a day by inhalation. She also uses 2 bar of Xanax daily. She reports last using around 3 AM this morning.
Patient was hospitalized last month for withdrawal with similar symptoms.
Patient denies any IV drug use. She denies any methadone use.
Past History
<Viviana Sims PA-C - Last Filed: 09/06/25 09:26>
Past History
ED Past Medical History: Asthma
ED Past Surgical History:
Social History
Tobacco: Smoker
Personal:
Living: with family
Family History
Family History: Other (Noncontributory)
Review of Systems
<Viviana Sims PA-C - Last Filed: 09/06/25 09:26>
Review of Systems
Allergies reviewed?: Yes
All Other Systems: ROS reviewed and negative except as documented in HPI and ROS
Phy Exam
<Viviana Sims PA-C - Last Filed: 09/06/25 09:26>
Physical Exam
Physical Exam:
Vitals: Hypertensive and tachycardic.
General: Patient appears uncomfortable. Disheveled appearance
Skin: No obvious rash
Head: Normocephalic, atraumatic
Eyes: Sclera nonicteric. EOMs intact. No nystagmus.
Throat: Poor dentition, protecting airway.
Neck: Normal ROM, no cervical spine tenderness, no meningismus
Cardiac: Tachycardic, normal rhythm. No murmurs
Pulm: Normal respiratory effort. Lungs clear bilaterally.
Abdomen: Abdomen soft. Diffuse tenderness without rebound tenderness or guarding.
Neuro: Alert and oriented. Moving all extremities. Tremulous
Psychiatric: Normal affect.
Course
<Viviana Sims PA-C - Last Filed: 09/06/25 09:26>
Orders/Labs/Results
Orders:
Orders
09/05/25 08:57
EKG [Electrocardiogram (*1)] Urgent
Reason for Study: Chest Pain
EKG- Treatment ONCE
09/05/25 09:29
0.9% Sodium Chloride 1000 ml [Nss] 1,000 ml IV BOLUS
HYDROmorphone [Dilaudid] 1 mg IV NOW STA
Ondansetron Injectable [Zofran] 4 mg IV NOW STA
Test Result ONCE
09/05/25 09:39
Complete Blood Count/With Diff Urgent
Comprehensive Metabolic Panel Urgent
HCG, Serum Qualitative Screen Urgent
Magnesium Urgent
09/05/25 09:45
Troponin I Urgent
09/05/25 09:56
Clonidine [Spwphcpr-Xwq-0] 0.1 mg TRANSDERM NOW STA
09/05/25 10:22
HYDROmorphone [Dilaudid] 1 mg IV NOW STA
Midazolam HCl [Versed] 2 mg IV NOW STA
Potassium Chloride [KCl] 40 meq 0.9% Sodium Chloride 250 ml [Nss] 250 ml IV NOW
09/05/25 10:33
Admit/Transfer Patient As Directed
Co-Sign Provider:
Level of Care: Inpatient admission
Assign to:: ICU
Physician / Group: Hospitalist
Diagnosis: Opioid withdrawal
Reason for Hospitalization: Opioid withdrawal
Expected length of stay greater than two midnights?: Yes
ELOS- Estimated Length of Stay in days: 2
I certify the patient meets the requirements for IP care: Yes
09/05/25 10:34
PRN Pain Medication Management As Directed
May give lesser potent ordered pain med per pt: Yes
preference::
Protocol:: Medication orders for pain may be administered in a
manner that supports deferring to patient preference
when the pt is:
- Requesting an ordered lesser potent pain medication.
Least to most potent pain medications are defined
as: acetaminophen < NSAID < tramadol < opioids
(morphine, oxycodone, hydromorphone).
- Requesting a lesser dose of the same medication IF
ORDERED.
- Requesting a less intrusive route of administration
if both routes are prescribed by the provider (PO <
IV).
09/05/25 10:36
Code Status As Directed
Resuscitation Status: Full Code
09/05/25 10:45
Dexmedetomidine 400 Mcg/100 ml [Precedex] 400 mcg in 100 ml IV PER PROTOCOL
Indication:: Light Sedation
Goal:: RASS 0 to -2
Maximum dose in mcg/kg/hr:: 1.5
Initial dose in mcg/kg/hr:: 0.2
Titration Instructions:: Titrate by 0.1-0.2 mcg/kg/hr every 30 minutes until RASS 0 to -2 achieved.
Taper Instructions:: If RASS is at or below goal for 4 consecutive hours, decrease infusion by
Taper Instructions:: 0.2 mcg/kg/hr every 2 hours to off.
Over-sedation Instructions:: If CPOT 0-2 (at goal) AND RASS -3 to -5 (below goal) decrease sedative by
Over-sedation Instructions:: 50% first. If pain score remains at goal and RASS remains below goal in
Over-sedation Instructions:: 1 hour, decrease opioid infusion by 50%.
Notify provider:: for sustained HR < 50 bpm or SBP < 90 mmHg
09/05/25 11:27
Albuterol Nebs [Ventolin Nebules] 2.5 mg INH R Q4HPRN PRN
Dexmedetomidine 400 Mcg/100 ml [Precedex] 400 mcg in 100 ml IV ORDERED RATE
Dextrose 5%/0.9%Sodchl 1000 ml [D5/0.9% Sodium Chloride] 1,000 ml Potassium Chloride [KCl] 40 meq Magnesium Sulfate 2 grams Thiamine Injection 500 mg IV 150 mls/hr
Metoclopramide [Reglan] 10 mg IV Q6HPRN PRN
Pantoprazole [Protonix IV] 40 mg IV DAILY
diazePAM [Valium Injection] 5 mg IV Q6HPRN PRN
09/05/25 11:27
Case Management Consult ONCE
Case Management Consult: Other
Comment: opioid withdrawal
Consult Alliance Manager [Alliance Manager Consult] Routine
Consulting Provider: Jose L Tian
Was physician already notified: Yes
Reason for consult: Opioid withdrawal
Activity As Directed
Activity Level: As Tolerated
Clinical Opioid Withdrawal Scale (COWS) Q4
Frequency:: now, Q4 hours x 24 hours, then PRN based on symptoms
Vital Signs As Directed
Frequency: Per unit guidelines
DX Deep Vein Thrombosis Video Routine
09/05/25 11:58
Urine Drug Abuse Screen Urgent
Date Specimen was Collected: 09/05/25
Time Specimen was Collected: 11:42
09/05/25 12:39
Alcohol Routine
09/05/25 16:00
Clonidine [Catapres] 0.1 mg PO TID
Heparin 5,000 units SC Q8
Loperamide [Imodium] 2 mg PO TID
Abnormal Lab Results
09/05/25
09:39
RBC 5.79 H 10^6/uL
(4.20-5.40)
MCV 73.9 L fL
(81.0-99.0)
MCHC 37.4 H g/dL
(33.0-37.0)
Potassium 2.5 L* mmol/L
(3.5-5.1)
Glucose 149 H mg/dl
(70-99)
Magnesium 1.4 L mg/dl
(1.6-2.3)
Total Protein 8.5 H g/dl
(6.3-8.2)
09/05/25 09:39
09/05/25 09:39
Vital Signs
Initial and Last Documented VS:
Initial Vital Signs
Pulse Resp Pulse Ox
126 27 97
09/05/25 09:00 09/05/25 09:00 09/05/25 09:00
Last Documented Vital Signs
Temp Pulse Resp BP Pulse Ox
98.5 F 153 28 144/100 95
09/06/25 07:28 09/06/25 07:30 09/06/25 07:30 09/06/25 07:30 09/06/25 07:30
<Megan Mason MD - Last Filed: 09/05/25 13:36>
Orders/Labs/Results
Orders:
Orders
09/05/25 08:57
EKG [Electrocardiogram (*1)] Urgent
Reason for Study: Chest Pain
EKG- Treatment ONCE
09/05/25 09:29
0.9% Sodium Chloride 1000 ml [Nss] 1,000 ml IV BOLUS
HYDROmorphone [Dilaudid] 1 mg IV NOW STA
Ondansetron Injectable [Zofran] 4 mg IV NOW STA
Test Result ONCE
09/05/25 09:39
Complete Blood Count/With Diff Urgent
Comprehensive Metabolic Panel Urgent
HCG, Serum Qualitative Screen Urgent
Magnesium Urgent
09/05/25 09:45
Troponin I Urgent
09/05/25 09:56
Clonidine [[id number]-Ccw-8] 0.1 mg TRANSDERM NOW STA
09/05/25 10:22
HYDROmorphone [Dilaudid] 1 mg IV NOW STA
Midazolam HCl [Versed] 2 mg IV NOW STA
Potassium Chloride [KCl] 40 meq 0.9% Sodium Chloride 250 ml [Nss] 250 ml IV NOW
09/05/25 10:33
Admit/Transfer Patient As Directed
Co-Sign Provider:
Level of Care: Inpatient admission
Assign to:: ICU
Physician / Group: Hospitalist
Diagnosis: Opioid withdrawal
Reason for Hospitalization: Opioid withdrawal
Expected length of stay greater than two midnights?: Yes
ELOS- Estimated Length of Stay in days: 2
I certify the patient meets the requirements for IP care: Yes
09/05/25 10:34
PRN Pain Medication Management As Directed
May give lesser potent ordered pain med per pt: Yes
preference::
Protocol:: Medication orders for pain may be administered in a
manner that supports deferring to patient preference
when the pt is:
- Requesting an ordered lesser potent pain medication.
Least to most potent pain medications are defined
as: acetaminophen < NSAID < tramadol < opioids
(morphine, oxycodone, hydromorphone).
- Requesting a lesser dose of the same medication IF
ORDERED.
- Requesting a less intrusive route of administration
if both routes are prescribed by the provider (PO <
IV).
09/05/25 10:36
Code Status As Directed
Resuscitation Status: Full Code
09/05/25 10:45
Dexmedetomidine 400 Mcg/100 ml [Precedex] 400 mcg in 100 ml IV PER PROTOCOL
Indication:: Light Sedation
Goal:: RASS 0 to -2
Maximum dose in mcg/kg/hr:: 1.5
Initial dose in mcg/kg/hr:: 0.2
Titration Instructions:: Titrate by 0.1-0.2 mcg/kg/hr every 30 minutes until RASS 0 to -2 achieved.
Taper Instructions:: If RASS is at or below goal for 4 consecutive hours, decrease infusion by
Taper Instructions:: 0.2 mcg/kg/hr every 2 hours to off.
Over-sedation Instructions:: If CPOT 0-2 (at goal) AND RASS -3 to -5 (below goal) decrease sedative by
Over-sedation Instructions:: 50% first. If pain score remains at goal and RASS remains below goal in
Over-sedation Instructions:: 1 hour, decrease opioid infusion by 50%.
Notify provider:: for sustained HR < 50 bpm or SBP < 90 mmHg
09/05/25 11:27
Albuterol Nebs [Ventolin Nebules] 2.5 mg INH R Q4HPRN PRN
Dexmedetomidine 400 Mcg/100 ml [Precedex] 400 mcg in 100 ml IV ORDERED RATE
Dextrose 5%/0.9%Sodchl 1000 ml [D5/0.9% Sodium Chloride] 1,000 ml Potassium Chloride [KCl] 40 meq Magnesium Sulfate 2 grams Thiamine Injection 500 mg IV 150 mls/hr
Metoclopramide [Reglan] 10 mg IV Q6HPRN PRN
Pantoprazole [Protonix IV] 40 mg IV DAILY
diazePAM [Valium Injection] 5 mg IV Q6HPRN PRN
09/05/25 11:27
Case Management Consult ONCE
Case Management Consult: Other
Comment: opioid withdrawal
Consult Alliance Manager [Alliance Manager Consult] Routine
Consulting Provider: Jose L Tian
Was physician already notified: Yes
Reason for consult: Opioid withdrawal
Activity As Directed
Activity Level: As Tolerated
Clinical Opioid Withdrawal Scale (COWS) Q4
Frequency:: now, Q4 hours x 24 hours, then PRN based on symptoms
Vital Signs As Directed
Frequency: Per unit guidelines
DX Deep Vein Thrombosis Video Routine
09/05/25 11:58
Urine Drug Abuse Screen Urgent
Date Specimen was Collected: 09/05/25
Time Specimen was Collected: 11:42
09/05/25 12:39
Alcohol Routine
09/05/25 16:00
Clonidine [Catapres] 0.1 mg PO TID
Heparin 5,000 units SC Q8
Loperamide [Imodium] 2 mg PO TID
Abnormal Lab Results
09/05/25
09:39
RBC 5.79 H 10^6/uL
(4.20-5.40)
MCV 73.9 L fL
(81.0-99.0)
MCHC 37.4 H g/dL
(33.0-37.0)
Potassium 2.5 L* mmol/L
(3.5-5.1)
Glucose 149 H mg/dl
(70-99)
Magnesium 1.4 L mg/dl
(1.6-2.3)
Total Protein 8.5 H g/dl
(6.3-8.2)
09/05/25 09:39
09/05/25 09:39
Vital Signs
Initial and Last Documented VS:
Initial Vital Signs
Pulse Resp Pulse Ox
126 27 97
09/05/25 09:00 09/05/25 09:00 09/05/25 09:00
Last Documented Vital Signs
Temp Pulse Resp BP Pulse Ox
98.5 F 153 28 144/100 95
09/06/25 07:28 09/06/25 07:30 09/06/25 07:30 09/06/25 07:30 09/06/25 07:30
<Viviana Sims PA-C - Last Filed: 09/06/25 09:26>
MDM/Problems Addressed
Differential Diagnosis Includes:
Not limited to: Opioid withdrawal, benzodiazepine withdrawal, xylazine withdrawal, electrolyte abnormality, etc.
MDM/Problems Addressed:
45-year-old female presents in police custody with severe opioid withdrawal. Patient arrested this morning and found to have abnormal vital signs and experiencing signs of withdrawal upon intake to long term. Reports using 15 bags of heroin per day
with 2 bar of Xanax. Last use early this morning around 3 AM. Patient hypertensive, tachycardic on arrival with persistent vomiting. She is diaphoretic and tremulous and reports abdominal cramps. COWS of 22. Patient treated symptomatically with
IV Dilaudid, Zofran, clonidine patch.
Labs significant for hypokalemia.
Dilaudid was redosed. Patient given IV Versed. Potassium repleted.
Patient remains persistently symptomatic despite treatment in ED. Discussed with hospitalist and licensed clinical psychologist. Will start Precedex drip and admit to ICU for further management: Severe withdrawal symptoms.
Chronic conditions affecting care:
Polysubstance abuse
Acute Exacerbation and/or Progression of Chronic Illness:
Acute opioid withdrawal
<Viviana Sims PA-C - Last Filed: 09/06/25 09:26>
*Pulse Oximetry
SaO2: 96
Oxygen Mode of Delivery: Room air
Patient hypoxic: no
*EKG
Interpreted by ED Provider?: Yes
EKG Intrepretation Date: 09/05/25
Interpretation: abnormal
Comparison EKG: no changes
Heart Rate: 127
Rate: tachycardiac
Rhythm: sinus
[place]: normal axis
Interval: long QT
Ischemia: non-specific ST changes
*Reconnaissance Man Interpretation
Rate: tachycardiac
Interpretation: abnormal
Heart Rate: 112
Rhythm: sinus
<Megan Mason MD - Last Filed: 09/05/25 13:36>
*Critical Care Note
Total Time (30-74mins, 75-104mins- exclusive of procedures): 37
comment:
Critical care statement: A total of 37 minutes of critical care time was provided for this patient. This includes management of unstable vital signs, evaluation of the patient at bedside, reviewing the patient's pertinent medical records, ordering
and reviewing studies, arranging urgent treatment with development of a management plan, evaluating patient's response to treatment, frequent reassessment, and discussion with consultants. This time was separate from time utilized to perform the
aforementioned documented procedures.
<Viviana Sims PA-C - Last Filed: 09/06/25 09:26>
Patient Management
Discussion with other providers: Hospitalist and Radioisotope Technician (Case discussed with itnensivist)
Escalation/DeEscalation of care consider admission/obs:
Admit indiciated
ED Attending Note
<Viviana Sims PA-C - Last Filed: 09/06/25 09:26>
-
Portions of this chart may have been created with voice recognition software.� Occasional wrong word or��sound alike� substitutions may have occurred due to the inherent limitations of voice recognition software.
<Megan Mason MD - Last Filed: 09/05/25 13:36>
ED Attending Note
Patient seen and examined by attending physician: Yes
I performed the substantive portion of visit, reviewed & personally made and approve the management plan that is documented in note by myself or ABE.: Yes
ED Attending Note:
I have seen and evaluated the patient with a [id number] encounter. I have spoken to the [ABE] and involved in the medical history, the physical exam, medical decision making.
Evaluation and management service: agree unless noted differently below.
Results interpretation: agree unless noted differently below.
45-year-old woman presenting to the emergency department opiate withdrawal. She is brought in by police custody. Patient states that she is distended 12 bags of fentanyl and elation a day. Last use 3 to 4 hours ago. Does not inject. Per chart
review patient was admitted for withdrawal in July. On arrival patient is actively vomiting and in withdrawal. Her heart is tachycardic but regular. Abdomen is soft nondistended nontender.
Patient is hypertensive tachycardic here. Concern for medetomidine withdrawal as well. Will initiate medications as well as COWS scoring. Will check blood work including EKG and QTc. Patient will need admission.
Discharge Plan
Departure
Patient Disposition: Admit
Date of Disposition: 09/05/25
Time of Disposition: 10:24
Admit to: ICU
Presentation/result/management discussed w/ accepting MD/DO: Hospitalist
Discharge Problem:
Opioid withdrawal
Interventions
Interventions:
*General Assessment Last Done: 09/05/25 09:12
*Neglect/Abuse Screening Last Done: 09/05/25 09:14
*ED Influenza Vaccine History Last Done: 09/05/25 09:15
*Nursing Disposition Last Done: 09/05/25 11:40
ED- Neurological Assessment Last Done: 09/05/25 09:17
ED-Psychological Assessment Last Done: 09/05/25 09:16
Discharge Date and Time
Discharge Date/Time: 09/05/25 11:41
[2025-09-05] MEDS: NSS 1000 IV (09:47)
[2025-09-05] MEDS: DILAUDID 1 MG IV ×2 (09:48→10:26)
[2025-09-05] MEDS: ZOFRAN 4 MG IV ×2 (09:48→14:58)
[2025-09-05 09:51] LABS: Hematocrit 42.8 % (37.0-47.0); Hemoglobin 16.0 g/dL (12.0-16.0); Mean Corp Hgb Conc. 37.4 g/dL (33.0-37.0); Mean Corpuscular Volume 73.9 fL (81.0-99.0); Nucleated Red Blood Cells % 0 %; Platelet Count 258 10^3/uL (130-400); Red Cell Dist. Width 12.7 % (11.5-14.5)
[2025-09-05 09:58] LABS: HCG, Serum Qualitative Screen Negative
[2025-09-05] MEDS: CATAPRES-TTS-1 0.1 MG TRANSDERM (10:02)
[2025-09-05 10:10] LABS: ALT (SGPT) 18 U/L (0-35); AST (SGOT) 31 U/L (14-36); Albumin 5.0 g/dl (3.5-5.0); Alkaline Phosphatase 110 U/L (38-126); Blood Urea Nitrogen 9 mg/dl (7-17); Calcium 10.1 mg/dl (8.4-10.2); Carbon Dioxide 28 mmol/L (22-30); Chloride 99 mmol/L (98-107); Estimated Creatinine Clearance 93 ml/min; Glucose 149 mg/dl (70-99); Magnesium 1.4 mg/dl (1.6-2.3); Potassium 2.5 mmol/L (3.5-5.1); Sodium 140 mmol/L (135-145); Total Protein 8.5 g/dl (6.3-8.2); eGFR > 60.00
[2025-09-05] MEDS: VERSED 2 MG IV (10:28)
--- NOTE | 2025-09-05 10:29 | HPS.HSE ---
Family Physician
-
Family Physician: NOT KNOW UNKNOWN - PT DOES
Chief Complaint
-
Nausea/vomiting, abdominal pain, tremors due to opioid withdrawal
History of Present Illness
45-year-old female with history of opioid and tobacco abuse presented to the ER with nausea/vomiting, tremors, diarrhea, abdominal pain, and bodyaches. Patient reports that she takes 12�15 bags of heroin daily. She smokes heroin, never used with
IV. She also reports taking Xanax 4 mg/day. Her last dose of heroin is at 4 AM in the morning. She was supposed to appear in court today, but did not go. She was arrested and was brought to the ER for withdrawal symptoms. Patient reports that
she has not taken methadone from the past 1 month (she was referred to methadone clinic at her prior discharge)
ED course�hypertensive at presentation 156/136, afebrile, tachycardic, 126. Potassium�2.5, glucose 149, magnesium 1.4 rest of labs unremarkable. EKG with sinus tachycardia. Patient's magnesium and potassium have been repleted, was given
ondansetron, clonidine patch, Dilaudid, Versed.
Medical History
Past Medical History
Past Medical History: Reports Other (Opioid abuse, tobacco abuse)
Past Surgical History: Reports None
Social History
Tobacco: Smoker
Alcohol: None
Drug: Narcotics
Personal: Single
Living: Alone
Family History
Family History: Not pertinent
Allergies / Home Medications
Allergies reflects when Allergies were last updated in [employer]
Home Medications with original date entered in [employer]
Allergy/Medication List:
Allergies
Allergy/AdvReac Type Severity Reaction Status Date / Time
Sulfa (Sulfonamide Allergy Anaphylaxis Verified 09/05/25 09:12
Antibiotics)
Home Medications
No Meds [No Current Medications] 09/05/25
Review of Systems
-
A 12 point ROS was completed and negative except as noted: Yes
Physical Exam
Vital Signs
Vital Signs
Pulse Resp BP Pulse Ox
99 26 195/89 96
09/05/25 10:00 09/05/25 09:03 09/05/25 10:02 09/05/25 09:28
Physical Exam
General: Appears in Distress and Appears Chronically Ill
HEENT: NormoCephalic and Atraumatic
Respiratory: Clear
Cardiac: S1/S2 and Tachycardia
GI: Soft, Normal Bowel Sounds and Tender
Skin: Warm and Dry
Neuro: Awake, Alert, Oriented, AO x 3 and Tremors
Psych: Anxious
Laboratory Results
-
09/05/25 09:39
09/05/25 09:39
Laboratory Results
Total Bilirubin 1.1 mg/dl (0.2-1.3) 09/05/25 09:39
AST 31 U/L (14-36) 09/05/25 09:39
ALT 18 U/L (0-35) 09/05/25 09:39
Alkaline Phosphatase 110 U/L (38-126) 09/05/25 09:39
Impression/Plan
-
IMPRESSION:
45-year-old female presenting to the ER, with recent heroin use at 3 AM in the morning. Patient is actively withdrawing at presentation.
PLAN:
#Substance abuse disorder
Patient has been abusing heroin and Xanax
COWS score at presentation�22
Hypertensive at presentation, started on clonidine patch.
Start IV fluids
Start Zofran, Reglan
Ativan as needed
Admitted to ICU
Consulted with litigation coordinator
Phenobarbital taper as per ICU protocol
Started on Precedex drip
Monitor electrolytes
Monitor EKG�EKG with sinus tachycardia, QTc 488
Case management consult
#Elevated blood pressure
Hypertensive urgency secondary to opioid withdrawal
Continue clonidine
IV labetalol as needed
#Hypokalemia
Potassium at 2.5
Replete
Monitor BMP
#Hypomagnesemia
Magnesium at 1.4
Repleted
Monitor BMP
#Tobacco abuse
Nicotine patch
DVT prophylaxis�subcu heparin
Diet�n.p.o.
Full code
[2025-09-05] MEDS: KCL 270 MEQ IV ×2 (10:39→15:40)
[2025-09-05 10:40] LABS: Troponin I 0.014 ng/ml
--- NOTE | 2025-09-05 10:48 | W.PN.UPDATE ---
Update Note
Progress Note Update
I interviewed and examined the patient. Discussed with resident and agree with findings and plan as documented in note.
45 years old female with prolonged history of opioid abuse who presented to the hospital with withdrawal symptoms including shaking, nausea vomiting, diarrhea, aches and chills
Patient reported taking more than 12 pack of heroin daily. She smokes heroin. Denies IV drug use. She denies open wounds or skin lesions. She denies dysuria.
She was supposed to be on methadone per her last discharge from the hospital but she did not follow with methadone/Subutex clinic.
She failed court appearance according to the police detention attendant, [place] marshal went to arrest her but later started to have severe withdrawal symptoms and brought her to the emergency room. The police detention attendant is telling me that she will likely be released from
their custody and then she will to follow with court after discharge from the hospital.
In the ER, blood work showed severe hypokalemia
Most recent admission, she required ICU care with Precedex infusion for opioid withdrawal
Physical Exam
General: 45 female with shaking and sweating reporting diffuse body ache-
HEENT: Normocephalic and Anicteric. She is not in respiratory distress
Cardiovascular: S1/S2, Peripheral Edema (negative) and Other (Tachycardic)
Respiratory: No significant wheeze , no rales
GI: Soft, Non Distended, Non Tender and Normal Bowel Sounds
Neurology: Awake, Alert and Tremors (Mild). She followed commands.
Skin: Warm and Dry. No evidence of open wounds
Psych: Restless, but not very agitated
A/P:
# Polysubstance abuse severe opiate withdrawal, history of (10�12 bags of heroin with Xanax)/ Benzodiazepine abuse
Admit the patient to the hospital/high-level care
Start the patient on supportive care including IV fluid, vitamins, electrolyte replacement therapy
Start the patient on clonidine with holding parameter
Start the patient on antiemetic/antinausea with Zofran, Reglan
Given use of Xanax, we might use phenobarbital to avoid withdrawal seizure
- She may need additional doses of either Ativan or Xanax for breakthrough symptoms
Imodium for loose stools/ diarrhea
Will discussed with ICU doctor to start the patient on Precedex as it seem it helped last admission
Unfortunately patient continues to abuse drugs and did not follow-up in outpatient setting. Consult case preparer and liner
Appreciate pulmonary help
# Severe hypokalemia. Will replace intravenous as patient is having vomiting. Maintain IV fluid
# Hypomagnesemia, replace
# History of asthma. No significant wheezes. Will add albuterol nebulizer therapy
# Hypertensive urgency secondary to opioid withdrawal
We will continue with the clonidine for now and supportive care
Will add Lisinopril once she tolerates oral
Add IV labetalol PRN
# Tobacco use, will give nicotine patch
# DVT and GI prophylaxis
Total time spent to see the patient, examined the patient, review data and lab result, discuss treatment plan with patient, nursing staff, ER doctor, wireless sales consultant around 75 minutes
[2025-09-05] MEDS: REGLAN 10 MG IV ×2 (11:36→17:13)
[2025-09-05] MEDS: PRECEDEX 100 IV ×2 (11:36→17:27)
[2025-09-05] MEDS: CATAPRES-TTS-3 TRANSDERM (11:55)
--- NOTE | 2025-09-05 12:02 | CON.INTV ---
Consultation
Consultation Request
Date/Time Consultation Requested: 09/05
Date/Time Consultation Performed: 09/05
Reason for Consultation: Critical care
Medical History
-
History of Present Illness:
History obtained from the patient and also reviewing medical records. 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
Last drug use was this morning. Patient was post to go to court, did not attend, was arrested and brought to ER for withdrawal symptoms. Patient apparently had been referred to methadone clinic in the past. She was recently discharged 07/31/2025
where she left AGAINST MEDICAL ADVICE. Upon arrival to [facility], patient was tremulous, pulse 126, breathing at 27, blood pressure 218/99, 97%. Patient was given Dilaudid, Zofran, metabolism, Precedex was initiated. Patient was
admitted to ICU. We are asked to help from critical care standpoint presently, patient remains tremulous
She denies shortness of breath, chest pain, abdominal pain. She is complaining of nausea/emesis
.
PMH: Daily fentanyl/heroin use, history of tobacco use. History of hepatitis C, asthma, History of left upper extremity abscess requiring I&D. History of acute cholecystitis with laparoscopic cholecystectomy. History of ovarian cyst
Past Medical History
Past Medical History: None (See above)
Past Surgical History: None (See above)
Social History
Tobacco: Smoker (Nicotine, heroin, fentanyl)
Alcohol: None
Drug: Other (Fentanyl, heroin inhaled)
Personal: Single
Living: Alone
Employment: Not Employed
Family History
Family History: Other (5 children aged 18-29. Siblings healthy)
Allergies / Home Medications
Allergies
Allergy/AdvReac Type Severity Reaction Status Date / Time
Sulfa (Sulfonamide Allergy Anaphylaxis Verified 09/05/25 09:12
Antibiotics)
Home Medications
�Medication �Instructions �Recorded �Confirmed �Last Taken �Type
No Meds [No Current Medications] 09/05/25 09/05/25 Unknown History
Review of Systems
-
All other systems: Negative unless noted
Vitals / Labs / Diagnostic Testing
Vital Signs
Temp Pulse Resp BP Pulse Ox
98.2 F 101 24 190/98 94
09/05/25 11:41 09/05/25 11:00 09/05/25 11:00 09/05/25 11:00 09/05/25 10:45
Lab Data
09/05/25 09:39
09/05/25 09:39
Diagnostic Testing:
Physical Exam
-
HEENT: Normocephalic, Anicteric, Other (Disheveled appearing) and Other (Poor dentition)
Cardiovascular: S1/S2, Regular Rhythm (Tachycardic), Murmur (n), Rub (n) and Peripheral Edema (n)
Respiratory: Wheeze (n), Rales (n), Rhonchi (n) and Non-Labored Respirations
GI: Soft, Non Distended and Tender (Mild, nonfocal, no rebound)
Neurology: Awake, Alert, No Motor Deficits (Moves all extremities) and Tremors (Tremulous)
Skin: Other (No obvious rash)
General: Other (Tremulous)
Assessment
-
45-year-old female with history of hepatitis C, alcohol use disorder, fentanyl/heroin use, presents with opioid withdrawal. Last drug use was early this morning on 09/05. Patient had a court date but did not show up, was brought to [place]
[facility] by police/arrested
Opioid withdrawal (12-15 bags of fentanyl/heroin a day)
Smokes, no intravenous use
Hypertensive urgency
Chronic benzodiazepine use
Per records, 2 to 4 bar a day (8 mg)
Conditions present prior to admission
History of asthma
History of hepatitis C
Alcohol use disorder in the past
History of left forearm abscess requiring I&D
History of laparoscopic cholecystectomy
Poor dentition
Plan/recommendations
At this time, patient remains critically ill with active withdrawal, hypertension, tachycardia, nausea, mild abdominal discomfort, tremulous
Precedex therapy
Withdrawal protocol
Clonidine, buprenorphine as able
Will likely require IV benzodiazepine given poor p.o. due to emesis
Unable to obtain adequate access
Midline requested
Continue IV fluids
Will require labetalol and/or Cardene for hypertension
Avoid rapid decrease in blood pressure
Upon reviewing prior records, patient had similar elevated blood pressure. She was supposed to be discharged on lisinopril and Coreg, not sure she is taking her medications
Replete magnesium, potassium
DVT prophylaxis: Enoxaparin
GI prophylaxis: Not indicated
Reviewed with critical care nursing
TCCT 31 min
[2025-09-05] MEDS: VALIUM INJECTION 5 MG IV (12:03)
[2025-09-05] MEDS: CATAPRES-TTS-3 0.3 MG TRANSDERM (12:09)
--- NOTE | 2025-09-05 12:33 | PTCARENOTE ---
patient received from ED actively vomiting yellow fluid. see COW score. patient administered PRN's per JAN, Precedex initiated.monitor Sinus tach, hypertensive. lungs with coarse breath sounds. post valium. sats decreased to 80's. oxygen placed.
able to void on bedpan, specimen sent. had large formed bowel movement. IV infiltrated. unable to obtain additional site. VAT team at bedside to place midline
[2025-09-05] MEDS: D5LR 1000 IV (12:43)
[2025-09-05] MEDS: CATAPRES PO ×2 (12:43→17:14)
[2025-09-05] MEDS: MAGNESIUM SULFATE 50 IV (12:43)
[2025-09-05 13:03] LABS: INR 1.12; PT 14.7 Sec (11.4-14.6)
[2025-09-05 13:04] LABS: APTT 28.3 Sec (23.4-35.0)
[2025-09-05] MEDS: DILAUDID 2 MG IV ×3 (13:04→20:10)
[2025-09-05] MEDS: NSS (PRESERVATIVE FREE) 0.5 ML IV ×2 (13:06→20:11)
[2025-09-05] MEDS: ATIVAN 1 MG IV ×2 (13:06→20:08)
--- NOTE | 2025-09-05 13:31 | PTCARENOTE ---
blood pressures remain elevated. polymerization engineer updated with patient status. at bedside to evaluate. no new orders at this time
[2025-09-05] MEDS: TRANDATE 10 MG IV ×2 (14:41→16:20)
[2025-09-05] MEDS: ZESTRIL PO (14:54)
--- NOTE | 2025-09-05 15:00 | CM ---
New admission. Opiate withdrawal. [facility] notified.
[2025-09-05] MEDS: BELBUCA 300 MCG BUCCAL ×2 (15:35→20:10)
[2025-09-05] MEDS: IMODIUM PO ×2 (15:41→22:12)
--- NOTE | 2025-09-05 15:49 | PTCARENOTE ---
Addendum entered by Capri Birch RN 09/05/25 16:24:
continues to be hypertensive, stat dose trandate administered
Original Note:
reassessed, continued hypertension and vomiting. Automatic Spooler Operator updated. unable to take po medications as ordered. dose trandate administered with slight effect. Automatic Spooler Operator at bedside and aware. prn dose zofran administered. patient sleeping at this
time post scheduled medications. call boudreaux in reach, bed alarm activated. ankle monitoring device placed to left ankle by [facility] staff.
--- NOTE | 2025-09-05 16:39 | PTCARENOTE ---
remains hypertensive. d/w skip operator and pharmacist. Precedex titrated per skip operator
[2025-09-05] MEDS: CARDENE 200 IV (17:04)
[2025-09-05] MEDS: LOVENOX 40 MG SC (17:14)
--- NOTE | 2025-09-05 17:54 | PTCARENOTE ---
cardene initiated and titration per work list. continued nausea. medicated with reglan per prn order. B Cares staff at bedside. call boudreaux in reach
--- NOTE | 2025-09-05 19:34 | PTCARENOTE ---
Handoff report received from off going RN. Patient received in bed on Precedex gtt at 1 mcg/kg/hr, Cardene gtt at 5 mg/hr, D5Lr at 70 ml/hr and K rider. Patient is drowsy but arousable to verbal commands. Disoriented to time. MAEx4. Plan of care for
the shift reviewed with the patient. Sinus tachy on the monitor with HR in the 130s-140s. Coarse breath sounds. Spo2 at 100% on 4L/o2 nc. +BS. Mouth care provided. Bed alarm in use. Ankle monitor remains in place. Call boudreaux is within reach.
[2025-09-06] VITALS (53 sets, daily range): BP systolic 121–196; BP diastolic 72–141; BMI 18.6
[2025-09-06] MEDS: BELBUCA 300 MCG BUCCAL ×4 (00:03→11:25)
[2025-09-06] MEDS: DILAUDID 2 MG IV ×7 (00:03→23:55)
[2025-09-06] MEDS: CATAPRES PO ×2 (00:04→06:36)
--- NOTE | 2025-09-06 00:12 | PTCARENOTE ---
Patient reassessed. Cardene gtt ongoing. Remains sinus tachy on the monitor. No new changes.
[2025-09-06] MEDS: NSS (PRESERVATIVE FREE) 0.5 ML IV ×4 (01:57→20:00)
[2025-09-06] MEDS: ATIVAN 1 MG IV ×4 (01:57→20:00)
[2025-09-06] MEDS: D5LR 1000 IV ×2 (03:30→17:08)
[2025-09-06] MEDS: PRECEDEX 100 IV ×2 (03:33→10:45)
[2025-09-06 05:15] LABS: Hematocrit 44.2 % (37.0-47.0); Hemoglobin 16.0 g/dL (12.0-16.0); Mean Corp Hgb Conc. 36.2 g/dL (33.0-37.0); Mean Corpuscular Volume 78.4 fL (81.0-99.0); Platelet Count 277 10^3/uL (130-400); Red Cell Dist. Width 13.2 % (11.5-14.5)
[2025-09-06 05:39] LABS: ALT (SGPT) 20 U/L (0-35); AST (SGOT) 31 U/L (14-36); Albumin 4.7 g/dl (3.5-5.0); Alkaline Phosphatase 107 U/L (38-126); Blood Urea Nitrogen 7 mg/dl (7-17); Calcium 9.5 mg/dl (8.4-10.2); Carbon Dioxide 28 mmol/L (22-30); Chloride 100 mmol/L (98-107); Estimated Creatinine Clearance 88 ml/min; Glucose 152 mg/dl (70-99); Magnesium 1.6 mg/dl (1.6-2.3); Potassium 2.5 mmol/L (3.5-5.1); Sodium 139 mmol/L (135-145); Total Protein 8.2 g/dl (6.3-8.2); eGFR > 60.00
[2025-09-06] MEDS: KCL 270 MEQ IV ×3 (05:54→17:39)
--- NOTE | 2025-09-06 05:58 | PTCARENOTE ---
Patient remains sinus tachy on the monitor. Potassium resulted for 2.5. K rider 40 meq IV ordered. Cardene gtt titrated per protocol. Patient continues to follow commands. Incontinent of urine. Patient cleansed and linens changed.
[2025-09-06] MEDS: CARDENE 200 IV (06:37)
--- NOTE | 2025-09-06 07:06 | W.PN.INTV ---
Today's Communication / Plan
Recommendations
Continue with withdrawal protocol
Cardene has been weaned off
Remains on dexmedetomidine
Assessment
-
45-year-old female with history of hepatitis C, alcohol use disorder, fentanyl/heroin use, presents with opioid withdrawal. Last drug use was early this morning on 09/05. Patient had a court date but did not show up, was brought to [place]
[facility] by police/arrested
Opioid withdrawal (12-15 bags of fentanyl/heroin a day)
Smokes, no intravenous use
Hypertensive urgency
Improved
Chronic benzodiazepine use
Per records, 2 to 4 bar a day (8 mg)
Conditions present prior to admission
History of asthma
History of hepatitis C
Alcohol use disorder in the past
History of left forearm abscess requiring I&D
History of laparoscopic cholecystectomy
Poor dentition
Plan/recommendations
At this time, patient remains critically ill but seems to be improved
Nausea improved, tolerating p.o. meds
Precedex therapy
Withdrawal protocol
Clonidine, buprenorphine as able
Able to tolerate tizanidine
Cardene drip has been weaned off
Hypokalemia noted
Moving forward
Continue IV fluids
Continue with withdrawal protocol, able to tolerate p.o. meds at this time
Zestril administered
Upon reviewing prior records, patient had similar elevated blood pressure. She was supposed to be discharged on lisinopril and Coreg, not sure she is taking her medications
Replete magnesium, potassium
Follow-up p.m.
DVT prophylaxis: Enoxaparin
GI prophylaxis: Not indicated
Reviewed with critical care nursing
TCCT 31 min
Subjective Dataa
Subjective Data
Date of Service:
Date of Service: September 06, 2025
Subjective:
Patient with depressed affect. She feels overall improved. When asked how she is feeling, 'I am anxious, in pain from nausea, just got comfortable'
Objective Data
Data Reviewed
Vital Signs / I&O / Oxygen:
Vital Signs
Temp Pulse Resp BP Pulse Ox
98.3 F 94 23 121/84 97
09/06/25 00:00 09/06/25 06:36 09/06/25 06:30 09/06/25 06:36 09/06/25 06:30
Intake and Output
09/05/25 09/06/25 09/07/25
06:59 06:59 05:59
Intake Total 2076.6 / 2076.6
Output Total 2400 / 2400
Balance -323.4 / -323.4
SaO2 97
Nasal Cannula flow liters per 4
minute
Physical Exam
General: Comfortable
HEENT: Normocephalic and Other (For dentition)
Cardiovascular: S1-S2, Regular Rhythm (Tachycardic), Murmur (n) and Rub (n)
Respiratory: Wheeze (n), Crackles (n), Rhonchi (n) and Non-Labored Respirations
GI: Soft, Non Distended and Non Tender
Neurology: Awake (Sleepy and lethargic, arousable answers questions, follows commands. Depressed affect)
Skin: Cyanosis (n) and Jaundice (n)
Labs/Micro/Reports
Lab Data
09/06/25 05:03
Laboratory Results
09/05/25
12:39
PT 14.7 H
INR 1.12
APTT 28.3
[2025-09-06] MEDS: IMODIUM PO ×3 (07:11→22:03)
[2025-09-06] MEDS: ZESTRIL 20 MG PO (07:20)
[2025-09-06] MEDS: ZANAFLEX 2 MG PO ×2 (08:56→15:01)
--- NOTE | 2025-09-06 09:26 | PTCARENOTE ---
Addendum entered by Capri Birch RN 09/06/25 10:19:
see prn administration. heart rate 100-110 post trandate. chinese instructor updated. incontinent urine. patient aware she urinated but did not notify staff prior to ask for bedpan. instructed to alert staff prior to just urinating in the bed to utilize
bedpan. she verbalized understanding
Original Note:
report received. assessments per work list. patient irritable. denies nausea. cardene off, placed on room air. see prn administration. [email or web address]. rate 140-160, chinese instructor, hospitalist updated. call boudreaux in reach. bed alarm
activated. denies nausea or need to urinate. diaphoretic, complete care given
--- NOTE | 2025-09-06 09:29 | W.PN.HOSP.TC ---
Addendum entered and electronically signed by Nik Muñoz MD 09/06/25 12:47:
Addendum
BMP resulted. Still significant hypokalemia. Will replace aggressively with intravenously, she is unable to tolerate oral potassium yet. Recheck BMP and magnesium later.
End
Original Note:
Today's Communication/Plan
-
.
Assessment / Plan
Assessment / Plan
Physical Exam
General: 45 female with less shaking , still uncomfortable from pains
HEENT: Normocephalic and Anicteric. She is not in respiratory distress
Cardiovascular: S1/S2, Peripheral Edema (negative) and Other (Tachycardic)
Respiratory: No significant wheeze , no rales
GI: Soft, Non Distended, Non Tender and Normal Bowel Sounds
Neurology: Awake, Alert and Tremors (Mild). She followed commands.
Skin: Warm and Dry. No evidence of open wounds
Psych: much less restless, but not very agitated
A/P:
# Polysubstance abuse severe opiate withdrawal, history of (10�12 bags of heroin with Xanax)/ Benzodiazepine abuse
Urine drug screen positive for opiates/ fentanyl, Cocaine
c/w care in ICU
Precedex gtt
Starting Buprenorphine schedule
c/w IVF, GI & DVT prophylaxis
c/w supportive care including IV fluid, vitamins, electrolyte replacement therapy
c/w clonidine with holding parameter
Start the patient on antiemetic/antinausea with Zofran, Reglan
Given use of Xanax, but urine drug screen did not show Benzo. Unsure what ills she was taking ( told were Xanax)
Imodium for loose stools/ diarrhea
Unfortunately patient continues to abuse drugs and did not follow-up in outpatient setting. Consulted case checker
Appreciate ICU doctor/ staff help
# Severe hypokalemia. replace intravenous as patient is having vomiting. Maintain IV fluid
# Hypomagnesemia, replace
# History of asthma. No significant wheezes. Will add albuterol nebulizer therapy
# Hypertensive urgency secondary to opioid withdrawal
Given Nicardipine gtt over night
Continue with the clonidine and supportive care
c/w Lisinopril
Added IV labetalol PRN
# Sinus tachycardia/ SVT ?
Continue with withdrawal treatment
# Tobacco use, nicotine patch
# DVT and GI prophylaxis
Total time spent to see the patient, examined the patient, review data and lab result, discuss treatment plan with patient, nursing staff,ICU doctor around 55 minutes
Anticipated Discharge: > 48 hours
Subjective/Interval History
-
Date of Service: September 06, 2025
She reports aches /pains all over her body , feeling unwell
Objective Data
-
Labs:
Laboratory Results
09/06/25 09/06/25
05:03 12:00
WBC 14.4 H
Hgb 16.0
Hct 44.2
Plt Count 277
Sodium 139 Pending
Potassium 2.5 L* Pending
Chloride 100 Pending
Carbon Dioxide 28 Pending
BUN 7 Pending
Creatinine 0.5 L Pending
Glucose 152 H Pending
Calcium 9.5 Pending
Total Bilirubin 1.0
AST 31
ALT 20
Alkaline Phosphatase 107
Vital Signs:
Vital Signs
Temp Pulse Resp BP Pulse Ox
98.5 F 153 28 144/100 95
09/06/25 07:28 09/06/25 07:30 09/06/25 07:30 09/06/25 07:30 09/06/25 07:30
I&O
09/05/25 09/06/25 09/07/25
06:59 06:59 05:59
Intake Total 2064.1 / 2226.0 161.9 / 161.9
Output Total 2400 / 2400
Balance -335.9 / -174.0 161.9 / 161.9
--- NOTE | 2025-09-06 09:38 | CM ---
CM reviewed chart, attempted to speak with pt but very sleepy, also attempted to reach son Ravi, no answer, did not leave voicemail at it was a work phone.
Pt lives in apartment in [place], independent. Wearing ankle monitor placed by court.
Does not have PCP, uses [facility]
Per notes was seen by JENNIFER 09/05.
CM will continue to follow for all discharge planning needs.
[2025-09-06] MEDS: CATAPRES 0.1 MG PO ×2 (09:47→15:57)
[2025-09-06] MEDS: TRANDATE 10 MG IV ×5 (10:08→22:03)
[2025-09-06] MEDS: CATAPRES 0.2 MG PO ×3 (11:25→23:55)
--- NOTE | 2025-09-06 11:56 | PTCARENOTE ---
reassessed. left hand iv infiltrated, vat team at bedside, attemtping to place additional site. unable to obtain additional PIV. tolerating sips of clears and oral medications. precedex per work list
[2025-09-06 12:21] LABS: Blood Urea Nitrogen 6 mg/dl (7-17); Calcium 9.3 mg/dl (8.4-10.2); Carbon Dioxide 27 mmol/L (22-30); Chloride 102 mmol/L (98-107); Estimated Creatinine Clearance 85 ml/min; Glucose 160 mg/dl (70-99); Potassium 2.9 mmol/L (3.5-5.1); Sodium 140 mmol/L (135-145); eGFR > 60.00
[2025-09-06] MEDS: SUBUTEX 2 MG SL ×3 (13:02→22:02)
--- NOTE | 2025-09-06 15:10 | PTCARENOTE ---
reassessed. patient denies urge to urinate. no void since this am. bladder scan per work list. weaning Precedex. PRN medication administered per JAN. hear rate 100-120's. refusing food, tolerating small sips clear liquids. bed alarm maintained. call
boudreaux in reach
[2025-09-06] MEDS: LOVENOX 40 MG SC (17:03)
--- NOTE | 2025-09-06 17:19 | PTCARENOTE ---
precedex weaned to off. assisted out of bed to bedside commode, voided melanie pungent urine. gait weak and unsteady
--- NOTE | 2025-09-06 20:31 | PTCARENOTE ---
Received patient in bed drowsy, but arousable to verbal commands. AAOx3 and able to make her needs known. Plan of care for the shift reviewed with the patient. Pt's SBP in the 180s. NETWORK CABLER made aware and Trandate 10 mg IV ordered and administered.
Sinus tachy on the monitor with HR btw 110-120. Diminished breath sounds. SpO2 at 93% on room air. +BS. Pt's incontinent of urine. Denies nausea. Bed alarm in use. Call boudreaux vikiin reach.
[2025-09-07] VITALS (50 sets, daily range): BP systolic 129–189; BP diastolic 79–128; PULSE 150; BMI 18.7
[2025-09-07] MEDS: CARDENE 200 IV ×2 (00:11→06:58)
--- NOTE | 2025-09-07 00:17 | PTCARENOTE ---
Patient's BP is in the 195/115, 189/128s. PRN Trandate and scheduled medications administered without improvement. CAR RENTAL SALES ASSISTANT made aware and Cardene gtt restarted at 2.5 mg/hr. Sinus tachy with HR 110. Patient arouses and make her needs known. Incontinent
of urine. Care provided.
[2025-09-07] MEDS: KCL 270 MEQ IV (01:00)
[2025-09-07] MEDS: ATIVAN 1 MG IV ×4 (01:58→19:21)
[2025-09-07] MEDS: NSS (PRESERVATIVE FREE) 0.5 ML IV ×4 (01:59→19:21)
[2025-09-07] MEDS: DILAUDID 2 MG IV ×2 (04:05→08:00)
[2025-09-07 04:25] LABS: Hematocrit 42.2 % (37.0-47.0); Hemoglobin 14.5 g/dL (12.0-16.0); Mean Corp Hgb Conc. 34.4 g/dL (33.0-37.0); Mean Corpuscular Volume 81.8 fL (81.0-99.0); Platelet Count 198 10^3/uL (130-400); Red Cell Dist. Width 13.7 % (11.5-14.5)
[2025-09-07 04:46] LABS: Blood Urea Nitrogen 8 mg/dl (7-17); Calcium 9.7 mg/dl (8.4-10.2); Carbon Dioxide 25 mmol/L (22-30); Chloride 107 mmol/L (98-107); Estimated Creatinine Clearance 85 ml/min; Glucose 141 mg/dl (70-99); Magnesium 1.5 mg/dl (1.6-2.3); Potassium 3.7 mmol/L (3.5-5.1); Sodium 138 mmol/L (135-145); eGFR > 60.00
[2025-09-07] MEDS: MAGNESIUM SULFATE 50 IV (05:25)
[2025-09-07] MEDS: CATAPRES 0.2 MG PO ×4 (05:31→23:07)
[2025-09-07] MEDS: KCL 160 MEQ IV (05:31)
--- NOTE | 2025-09-07 05:36 | PTCARENOTE ---
Pt's labs resulted. Potassium chloride 20 meq IV for K of 3.7, and magnesium chloride 2 grams ordered for MG 1.5. Patient has urgency and jumps oob to bedside commode without utilizing call boudreaux. Patient educated on the importance of utilizing call
boudreaux to prevent fall and injury as she is attached to different medications and wires. Pt's also, shaky with HR in the 130s-150s. Pt continues to get oob without utilizing call boudreaux. Bed alarm remains in use.
--- NOTE | 2025-09-07 06:38 | W.PN.INTV ---
Today's Communication / Plan
Recommendations
Wean off Cardene drip
Continue with withdrawal protocol
Off Precedex since yesterday p.m.
Encourage out of bed to chair, ambulate
Encourage p.o. intake
Possible transfer out of ICU later today. Once transferred, we will sign off. Please call with questions
Assessment
-
45-year-old female with history of hepatitis C, alcohol use disorder, fentanyl/heroin use, presents with opioid withdrawal. Last drug use was early this morning on 09/05. Patient had a court date but did not show up, was brought to [place]
[facility] by police/arrested
Opioid withdrawal (12-15 bags of fentanyl/heroin a day)
Smokes, no intravenous use
Hypertensive urgency
Improved
Chronic benzodiazepine use
Per records, 2 to 4 bar a day (8 mg)
Conditions present prior to admission
History of asthma
History of hepatitis C
Alcohol use disorder in the past
History of left forearm abscess requiring I&D
History of laparoscopic cholecystectomy
Poor dentition
Plan/recommendations
At this time, patient overall continues to improve
Nausea improved, tolerating p.o. meds
Off Precedex therapy since yesterday p.m.
Withdrawal protocol
Clonidine, buprenorphine as able
Able to tolerate tizanidine
Cardene drip continues
Hypokalemia noted, hypomagnesemia noted
Moving forward
Continue IV fluids
Wean off Cardene drip
Continue with withdrawal protocol, able to tolerate p.o. meds at this time
Zestril administered
Upon reviewing prior records, patient had similar elevated blood pressure. She was supposed to be discharged on lisinopril and Coreg, not sure she is taking her medications
Replete magnesium, potassium
Follow
DVT prophylaxis: Enoxaparin
GI prophylaxis: Not indicated
Reviewed with critical care nursing
Reviewed with primary service
Once off Cardene drip, consider transfer out of ICU. We will sign off. Please call with questions
Subjective Dataa
Subjective Data
Date of Service:
Date of Service: September 07, 2025
Subjective:
Patient is slowly improving. She has some mild nausea, mild anxiety, mild shortness of breath. She is off Precedex since yesterday p.m.
Objective Data
Data Reviewed
Vital Signs / I&O / Oxygen:
Vital Signs
Temp Pulse Resp BP Pulse Ox
98.9 F 133 27 158/106 95
09/07/25 00:22 09/07/25 05:31 09/07/25 00:45 09/07/25 05:31 09/07/25 00:45
Intake and Output
09/05/25 09/06/25 09/07/25
06:59 06:59 05:59
Intake Total 2064.1 / 2226.0 3127.8 / 3127.8
Output Total 2400 / 2400 950 / 950
Balance -335.9 / -174.0 2177.8 / 2177.8
SaO2 95
Nasal Cannula flow liters per 4
minute
Physical Exam
General: Comfortable
HEENT: Normocephalic and Other (poor dentition)
Cardiovascular: S1-S2, Regular Rhythm (Tachycardic), Murmur (n) and Rub (n)
Respiratory: Wheeze (n), Crackles (n), Rhonchi (n) and Non-Labored Respirations
GI: Soft, Non Distended and Non Tender
Neurology: Awake (Sleepy and lethargic, arousable answers questions, follows commands. Depressed affect), Alert, No Motor Deficits (Moving extremities) and Other
Skin: Cyanosis (n), Jaundice (n) and Other (Left lower extremity device in place)
Labs/Micro/Reports
Lab Data
09/07/25 04:11
Microbiology
09/05/25 11:58 Nose MRSA Screen - Final
No Methicillin Resistant Staphylococcus aureus isolated.
[2025-09-07] MEDS: D5LR 1000 IV ×2 (06:58→20:23)
[2025-09-07] MEDS: SUBUTEX 2 MG SL (08:05)
[2025-09-07] MEDS: ZESTRIL 40 MG PO (08:07)
[2025-09-07] MEDS: IMODIUM 2 MG PO ×3 (08:07→22:17)
[2025-09-07] MEDS: TOPROL XL 25 MG PO ×2 (08:08→19:22)
[2025-09-07] MEDS: ZANAFLEX 2 MG PO ×3 (08:30→22:17)
--- NOTE | 2025-09-07 08:55 | PTCARENOTE ---
pt drowsy , restless at times , current cows score 8 , HR 130-150s Zanaflex given as ordered for high HR , oral antihypertensives given , continues on Cardene gtt for tachycardia , poor appetite
--- NOTE | 2025-09-07 09:25 | W.PN.HOSP.TC ---
Addendum entered and electronically signed by Nik Muñoz MD 09/07/25 12:49:
Addendum
I spoke with patient' mother based upon permission from the patient.
Mother is coming to see the pt, she was appreciative of the call, she did not know about admission but aware of drug abuse history and legal troubles.
Name Traci Dexter [phone]
d/w nursing staff
BP: off nicardipine gtt but still high, c/w PRN, change Toprol to BID
End
Original Note:
Today's Communication/Plan
-
.
Assessment / Plan
Assessment / Plan
Physical Exam
General: 45 female with less shaking , still uncomfortable from pains
HEENT: Normocephalic and Anicteric. She is not in respiratory distress
Cardiovascular: S1/S2, Peripheral Edema (negative) and Other (Tachycardic)
Respiratory: No significant wheeze , no rales
GI: Soft, Non Distended, Non Tender and Normal Bowel Sounds
Neurology: Awake, Alert and no Tremors . She followed commands.
Skin: Warm and Dry. No evidence of open wounds
Psych: much less restless, but not very agitated
A/P:
# Polysubstance abuse severe opiate withdrawal, history of (10�12 bags of heroin with Xanax)/ Benzodiazepine abuse
Urine drug screen positive for opiates/ fentanyl, Cocaine
c/w care in ICU/ IMU
Less shaking, tremor, seems to show mild clinical improvement.
Precedex gtt, now off
Starting Buprenorphine schedule with IV Dilaudid. Stop IV Dilaudid since improvement in her status.
c/w IVF, GI & DVT prophylaxis. oral diet with aspiration precautions.
c/w clonidine with holding parameter
c/w antiemetic/antinausea with Zofran, Reglan
Given use of Xanax but urine drug screen did not show Benzo. Unsure what pills she was taking ( told were Xanax) . On IV Ativan ATC
Imodium for loose stools/ diarrhea
Unfortunately patient continues to abuse drugs and did not follow-up in outpatient setting. Consulted top case assembler
Appreciate ICU doctor/ staff help
# Severe hypokalemia. replaced intravenous as patient is having vomiting. Maintain IV fluid with KCl.
# Hypomagnesemia, replaced
# History of asthma. No significant wheezes. Will add albuterol nebulizer therapy
# Hypertensive urgency secondary to opioid withdrawal
On Nicardipine gtt
Continue with the clonidine and supportive care
c/w Lisinopril, increase to 40
Add oral Toprol.
Added IV labetalol PRN
# Sinus tachycardia
Started on low dose BB
Continue with withdrawal treatment
# Tobacco use, nicotine patch
# DVT and GI prophylaxis
Total time spent to see the patient, examined the patient, review data and lab result, discuss treatment plan with patient, nursing staff, ICU doctor around 55 minutes
Anticipated Discharge: > 48 hours
Subjective/Interval History
-
Date of Service: September 07, 2025
Still lethargic
Pt reports aches all body
No fevers
Objective Data
-
Labs:
Laboratory Results
09/07/25 09/07/25
04:11 12:00
WBC 10.2
Hgb 14.5
Hct 42.2
Plt Count 198 D
Sodium 138 Pending
Potassium 3.7 D Pending
Chloride 107 Pending
Carbon Dioxide 25 Pending
BUN 8 Pending
Creatinine 0.5 L Pending
Glucose 141 H Pending
Calcium 9.7 Pending
Vital Signs:
Vital Signs
Temp Pulse Resp BP Pulse Ox
98.4 F 128 28 145/100 94
09/07/25 08:00 09/07/25 08:08 09/07/25 08:00 09/07/25 08:08 09/07/25 08:00
I&O
09/06/25 09/07/25 09/08/25
06:59 05:59 06:59
Intake Total 2064.1 / 2226.0 3542.8 / 3705.3 325.0 / 325.0
Output Total 2400 / 2400 950 / 950
Balance -335.9 / -174.0 2592.8 / 2755.3 325.0 / 325.0
[2025-09-07] MEDS: TRANDATE 10 MG IV ×3 (11:19→23:08)
[2025-09-07] MEDS: SUBUTEX 4 MG SL ×3 (12:15→22:17)
--- NOTE | 2025-09-07 13:03 | PTCARENOTE ---
pt now written for telemetry status
[2025-09-07] MEDS: LOVENOX 40 MG SC (18:23)
--- NOTE | 2025-09-07 21:50 | PTCARENOTE ---
Patient asleep at start of visit, awakens to verbal stimuli. COWS 5 at start of visit. Ativan 1mg q6 administered per orders. NSR on the monitor, positive pulses. Lungs cta, pox 96% ra. BS active/hyperactive x4. Patient continues with D5 LR at
70ml/hr as ordered to right midline. Previous rn administered PRN Labetalol prior to shift change, will monitor effects. Call boudreaux within reach, will continue to monitor.
--- NOTE | 2025-09-07 23:37 | PTCARENOTE ---
Patients BP elevated. Midnight dose of Catapress administered along with PRN Labetalol. Medication effective, at this time bp 151/103, hr 79. Patient denies any headache, vision changes, ect.
Patient to be transferred to the 4th floor, will call report when room ready and transfer as able.
[2025-09-08] VITALS (10 sets, daily range): BP systolic 152–183; BP diastolic 98–108
[2025-09-08] MEDS: NSS (PRESERVATIVE FREE) 0.5 ML IV ×3 (01:21→12:57)
[2025-09-08] MEDS: ATIVAN 1 MG IV ×3 (01:21→12:54)
[2025-09-08 04:15] LABS: Hematocrit 37.6 % (37.0-47.0); Hemoglobin 12.7 g/dL (12.0-16.0); Mean Corp Hgb Conc. 33.8 g/dL (33.0-37.0); Mean Corpuscular Volume 82.5 fL (81.0-99.0); Platelet Count 170 10^3/uL (130-400); Red Cell Dist. Width 13.4 % (11.5-14.5)
[2025-09-08] MEDS: TRANDATE 10 MG IV ×3 (04:15→12:08)
[2025-09-08] MEDS: ROXICODONE 20 MG PO ×2 (04:15→07:43)
[2025-09-08] MEDS: ZANAFLEX 2 MG PO ×4 (04:21→21:55)
[2025-09-08 04:40] LABS: ALT (SGPT) 14 U/L (0-35); AST (SGOT) 20 U/L (14-36); Albumin 3.5 g/dl (3.5-5.0); Alkaline Phosphatase 59 U/L (38-126); Blood Urea Nitrogen 11 mg/dl (7-17); Calcium 8.9 mg/dl (8.4-10.2); Carbon Dioxide 27 mmol/L (22-30); Chloride 107 mmol/L (98-107); Estimated Creatinine Clearance 86 ml/min; Glucose 102 mg/dl (70-99); Magnesium 1.8 mg/dl (1.6-2.3); Potassium 3.5 mmol/L (3.5-5.1); Sodium 137 mmol/L (135-145); Total Protein 6.1 g/dl (6.3-8.2); eGFR > 60.00
[2025-09-08] MEDS: CATAPRES 0.2 MG PO (06:11)
[2025-09-08] MEDS: TOPROL XL 25 MG PO ×2 (07:43→19:36)
[2025-09-08] MEDS: SUBUTEX 4 MG SL (07:43)
[2025-09-08] MEDS: ZESTRIL 40 MG PO (07:44)
[2025-09-08] MEDS: IMODIUM PO ×3 (07:44→19:38)
--- NOTE | 2025-09-08 09:12 | PTCARENOTE ---
assessments per work list. BP elevated. see prn administration. this show card writer placed call to book canvasser warrant office updated them on patient inability to appear in court today due to continued hospitalization. residential case manager updated
[2025-09-08] MEDS: D5LR 1000 IV (10:51)
[2025-09-08] MEDS: CATAPRES 0.3 MG PO ×3 (12:24→23:50)
--- NOTE | 2025-09-08 13:12 | W.PN.HOSP.TC ---
Addendum entered and electronically signed by Francisco Huffman MD 09/10/25 15:49:
should be off toprol if not off cocaine outpt
[id number]
Original Note:
Today's Communication/Plan
-
clonidine PO and patch for hypertension
Alprazolam TID - hold for sedation
ACEI, BB
DC to acute rehab
Assessment / Plan
Assessment / Plan
Physical Exam
General: 45 female with less shaking , still uncomfortable from pains
HEENT: Normocephalic and Anicteric. She is not in respiratory distress
Cardiovascular: S1/S2, Peripheral Edema (negative) and Other (Tachycardic)
Respiratory: No significant wheeze , no rales
GI: Soft, Non Distended, Non Tender and Normal Bowel Sounds
Neurology: Awake, Alert and no Tremors . She followed commands.
Skin: Warm and Dry. No evidence of open wounds
Psych: much less restless, but not very agitated
A/P:
# Polysubstance abuse severe opiate withdrawal, history of (10�12 bags of heroin with Xanax)/ Benzodiazepine abuse
Urine drug screen positive for opiates/ fentanyl, Cocaine
c/w care in ICU/ IMU
Less shaking, tremor, seems to show mild clinical improvement.
Precedex gtt, now off
Starting Buprenorphine schedule with IV Dilaudid. Stop IV Dilaudid since improvement in her status.
c/w IVF, GI & DVT prophylaxis. oral diet with aspiration precautions.
c/w clonidine with holding parameter
c/w antiemetic/antinausea with Zofran, Reglan
Given use of Xanax but urine drug screen did not show Benzo. Unsure what pills she was taking ( told were Xanax) . On IV Ativan ATC
Imodium for loose stools/ diarrhea
Unfortunately patient continues to abuse drugs and did not follow-up in outpatient setting. Consulted case packer
Subutex taper
Benzo TID - hold for sedation
CLonidine
# Severe hypokalemia. replaced intravenous as patient is having vomiting. Maintain IV fluid with KCl. F/u bmp outpt
# Hypomagnesemia, replaced
# History of asthma. No significant wheezes. Will add albuterol nebulizer therapy
# Hypertensive urgency secondary to opioid withdrawal
On Nicardipine gtt
Continue with the clonidine and supportive care - increased clonidine to .3mg 6h
Clondidine patch
c/w Lisinopril, increase to 40
Add oral Toprol.
Added IV labetalol PRN
# Sinus tachycardia
Started on low dose BB
Continue with withdrawal treatment
# Tobacco use, nicotine patch
# DVT and GI prophylaxis
More than 30 minutes spent in discharge including
Final examination of the patient
Summarizing hospital stay
Instructions for continuing care to all relevant caregivers
Preparation of discharge records, prescriptions, and referral forms
Total time spent (in minutes): 36
Anticipated Discharge: Today
Subjective/Interval History
-
Date of Service: September 08, 2025
no acute events overnight
Objective Data
-
Labs:
Laboratory Results
09/08/25
04:06
WBC 6.0
Hgb 12.7
Hct 37.6
Plt Count 170
Sodium 137
Potassium 3.5
Chloride 107
Carbon Dioxide 27
BUN 11
Creatinine 0.6
Glucose 102 H
Calcium 8.9
Total Bilirubin 0.7
AST 20
ALT 14
Alkaline Phosphatase 59
Vital Signs:
Vital Signs
Temp Pulse Resp BP Pulse Ox
97.8 F 78 22 165/101 96
09/08/25 11:00 09/08/25 12:24 09/07/25 16:30 09/08/25 12:24 11/03/25 08:05
I&O
09/07/25 09/08/25 09/09/25
05:59 06:59 06:59
Intake Total 3542.8 / 3705.3 2212.5 / 2212.5 1310 / 1310
Output Total 950 / 950 600 / 600
Balance 2592.8 / 2755.3 2212.5 / 2212.5 710 / 710
Review of Systems
-
History Source: Patient
All other systems: Not reviewed unless documented
Physical Exam
-
General: No Apparent Distress and Appears Chronically Ill
HEENT: Normocephalic, Atraumatic, Moist Mucous Membranes and Anicteric
Respiratory: Clear to Auscultation and Non Labored Respirations
Cardiac: Regular Rhythm and S1/S2
GI: Soft, Nontender and Nondistended
Musculoskeletal: No Edema
Skin: Warm and Dry
Neuro: AO x 3, No Motor Deficits and Nonfocal/Grossly Intact
Psych: Anxious
Data Reviewed
-
Diagnostic Radiology: Report Reviewed by me
Labs: Labs Reviewed by me
--- NOTE | 2025-09-08 13:19 | W.DS.TRANS ---
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
-
Discharge Instructions:
Discharge Diagnosis/Procedures # Polysubstance abuse severe opiate withdrawal,
history of (10�12 bags of heroin with Xanax)/
Benzodiazepine abuse
Severe hypokalemia
# Hypertensive urgency secondary to opioid
withdrawal
Activity As tolerated
Blood Work cbc and bmp in 3-5 days with pcp
Instructions:
Stand-Alone Forms:
Changes to Home Medications: Yes
Discharge Medications:
DC Medications w/original date entered in [facility]
acetaminophen 325 mg tablet 650 mg (2 x 325 mg) PO Q6HPRN PRN mild pain/ fever>100.5F #0 tabs 09/08/25
alprazolam 1 mg tablet 1 mg PO TID 3 days #9 tabs 09/08/25
buprenorphine HCl 2 mg sublingual tablet 2 mg sublingual Q4HPRN PRN opioid withdrawal symptoms #0 tabs 09/08/25
buprenorphine HCl 8 mg sublingual tablet 8 mg sublingual BID@0800,1999 1 day #0 tabs 09/08/25
buprenorphine HCl 8 mg sublingual tablet 16 mg (2 x 8 mg) sublingual DAILY@0800 #0 tabs 09/08/25
clonidine 0.3 mg/24 hr weekly transdermal patch 0.3 mg transdermal Q7D #0 ea 09/08/25
clonidine HCl 0.1 mg tablet 0.1 mg PO Q6HPRN PRN restlessness,agitation,anxiety #0 tabs 09/08/25
clonidine HCl 0.3 mg tablet 0.3 mg PO Q6 #0 tabs 09/08/25
lisinopril 20 mg tablet 40 mg (2 x 20 mg) PO DAILY #0 tabs 09/08/25
metoprolol succinate 25 mg tablet,extended release 24 hr 25 mg PO BID #0 tabs 09/08/25
tizanidine 2 mg tablet 2 mg PO Q6HPRN PRN restlessness,agitation,anxiety #12 tabs 09/08/25
Home Medication Changes
acetaminophen 325 mg tablet 650 mg (2 x 325 mg) PO Q6HPRN PRN mild pain/ fever>100.5F #0 tabs 09/08/25
alprazolam 1 mg tablet 1 mg PO TID 3 days #9 tabs 09/08/25
buprenorphine HCl 2 mg sublingual tablet 2 mg sublingual Q4HPRN PRN opioid withdrawal symptoms #0 tabs 09/08/25
buprenorphine HCl 8 mg sublingual tablet 8 mg sublingual BID@0800,1999 1 day #0 tabs 09/08/25
buprenorphine HCl 8 mg sublingual tablet 16 mg (2 x 8 mg) sublingual DAILY@0800 #0 tabs 09/08/25
clonidine 0.3 mg/24 hr weekly transdermal patch 0.3 mg transdermal Q7D #0 ea 09/08/25
clonidine HCl 0.1 mg tablet 0.1 mg PO Q6HPRN PRN restlessness,agitation,anxiety #0 tabs 09/08/25
clonidine HCl 0.3 mg tablet 0.3 mg PO Q6 #0 tabs 09/08/25
lisinopril 20 mg tablet 40 mg (2 x 20 mg) PO DAILY #0 tabs 09/08/25
metoprolol succinate 25 mg tablet,extended release 24 hr 25 mg PO BID #0 tabs 09/08/25
tizanidine 2 mg tablet 2 mg PO Q6HPRN PRN restlessness,agitation,anxiety #12 tabs 09/08/25
Pending Results: No
[2025-09-08] MEDS: SUBUTEX 2 MG SL (15:28)
--- NOTE | 2025-09-08 15:35 | PTCARENOTE ---
hosptilsit updated. per CM, [facility] unable to take patient until tomorrow as their pharmacy closes at four. patient updated
--- NOTE | 2025-09-08 15:36 | CM ---
Patient was accepted at [facility] past days. [facility] been notified that she no longer meets their criteria because is a 4.0 facility for medical needs and patient is now a 3.75. Referral sent to [facility]. Anticipate
discharge tomorrow on 09/09/25 if [facility] accepts. Patient, RN and Attending notified.
[2025-09-08] MEDS: CATAPRES 0.1 MG PO (15:43)
[2025-09-08] MEDS: LOVENOX SC (16:47)
[2025-09-08] MEDS: XANAX 1 MG PO ×2 (16:51→21:55)
[2025-09-08] MEDS: SUBUTEX 8 MG SL (19:36)
--- NOTE | 2025-09-08 19:54 | PTCARENOTE ---
Received patient at start of shift from previous RN. Patient aao x3, denies pain, COWS 8, subutex administered per order. NSR on the monitor, positive pulses. Lung sounds diminished throughout, pox 97% on ra. BS active/hypoactive x4. RUE midline
patent, capped at this time. Call boudreaux within reach, reviewed use of call boudreaux with patient. Will continue to monitor patient closely.
[2025-09-09] VITALS (9 sets, daily range): BP systolic 161–195; BP diastolic 93–110
[2025-09-09] MEDS: SUBUTEX 2 MG SL (03:13)
[2025-09-09] MEDS: ZANAFLEX 2 MG PO (05:14)
[2025-09-09] MEDS: CATAPRES 0.3 MG PO (05:14)
--- NOTE | 2025-09-09 05:18 | PTCARENOTE ---
Patient moving arm when bp taken. Denies s/s of htn. Medication administered per order. Will monitor bp and administer additional medication per orders if bp remains elevated.
--- NOTE | 2025-09-09 05:46 | PTCARENOTE ---
Follow up bp decreased to 175/106, will monitor closely and update oncoming RN.
[2025-09-09] MEDS: XANAX 1 MG PO (08:19)
[2025-09-09] MEDS: ZESTRIL 40 MG PO (08:20)
[2025-09-09] MEDS: SUBUTEX 8 MG SL (08:22)
[2025-09-09] MEDS: TOPROL XL 25 MG PO (08:23)
[2025-09-09] MEDS: IMODIUM PO (08:23)
[2025-09-09] MEDS: CATAPRES 0.1 MG PO (09:09)
--- NOTE | 2025-09-09 09:27 | PTCARENOTE ---
pt awake and drowsy , cows score 8 this am , she states she feels anxious , BP 173/98 she received her am antihypertensives and then was given prn 01. mg of Catapres , she is going to be DC to [facility] later today
[2025-09-09] MEDS: TRANDATE 10 MG IV (09:37)
--- NOTE | 2025-09-09 10:03 | PTCARENOTE ---
repeat blood pressure down to 161/103
--- NOTE | 2025-09-09 10:35 | CM ---
Addendum entered by Seth Lake 09/09/25 10:37:
Nurse to Nurse Report #: [phone]
Fax#: [phone]
Original Note:
Patient has been medically cleared for discharge to [facility] for [facility]. [facility] has scheduled [employer] transport for 10:30am.
--- NOTE | 2025-09-09 10:49 | PTCARENOTE ---
report called to [facility] , pt had midline removed , she was transported via wheel chair to [facility] and sent to [facility] via uber
== END 2025-09-09 10:40 | DRG 897 ==
LOC: ICU 11:01
PROVIDERS: Nurse Practitioner Family; Nurse Practitioner Primary Care; Physician Assistant; Student in an Organized Health Care Education/Training Program; ADMITTING PHYSICIAN Internal Medicine; ATTENDING PHYSICIAN Internal Medicine; CONSULT PHYSICIAN Internal Medicine Critical Care Medicine; EMERGENCY PHYSICIAN Student in an Organized Health Care Education/Training Program
DX: F11.23 Opioid dependence with withdrawal (principal); E87.6 Hypokalemia; I16.0 Hypertensive urgency; F17.200 Nicotine dependence, unspecified, uncomplicated; Z88.2 Allergy status to sulfonamides; Z79.899 Other long term (current) drug therapy; I10 Essential (primary) hypertension; E83.42 Hypomagnesemia; J45.909 Unspecified asthma, uncomplicated; Z90.49 Acquired absence of other specified parts of digestive tract
CPT/HCPCS: 71045; 80048; 80053; 80306; 80307; 82077; 82248; 83735; 84484; 84703; 85025; 85027; 85610; 85730; 87070; 93005; 96361; 96374; 96375; 96376; 99291; 99406